=== PATIENT | male | born 1990 ===

== ENCOUNTER 2020-10-15 09:46 | Outpatient (REF) | payer MEDICARE, MEDICAID, SELFPAY ==
--- NOTE | ~2020-10-15 | XR_ITS ---
EXAMINATION: XR HAND, LEFT CLINICAL INFORMATION: Pain COMPARISON: None TECHNIQUE: PA, lateral, and oblique views of the left hand. FINDINGS: The bones and soft tissues are normal. No fracture. Alignment is anatomic. Joint spaces are maintained. No erosions or soft tissue calcifications. XR/XR hand LT min 3V IMPRESSION: Normal left hand.
== END 2020-10-15 09:47 | disposition home or self-care (01) ==
LOC: HO.XRAY 09:46
PROVIDERS: PCP Internal Medicine; Visit Provider Internal Medicine
DX: M79.645 Pain in left finger(s) (principal); M79.89 Other specified soft tissue disorders; S69.90XA Unspecified injury of unspecified wrist, hand and finger(s), initial encounter
CPT/HCPCS: 73130

== ENCOUNTER 2021-04-24 20:20 | Emergency (ER) | payer OTHER, MEDICARE, MEDICAID, SELFPAY ==
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
[2021-04-24 20:24] VITALS: BP 151/84; PULSE 92; RESP 16; TEMP 36.6; O2SAT 98; BMI 24.9
--- NOTE | 2021-04-24 23:44 | PC.NURSE ---
PT WAITING FOR EVAL. SNACKS AND DRINKS PROVIDED. UPDATED PATIENT.
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
[2021-04-25] VITALS: BP 118/81; PULSE 92; RESP 16; TEMP 36.8; O2SAT 99
== END 2021-04-25 00:47 | disposition home or self-care (01) ==
PROVIDERS: Emergency Provider Emergency Medicine
DX: S09.90XA Unspecified injury of head, initial encounter (principal); S20.213A Contusion of bilateral front wall of thorax, initial encounter; R07.9 Chest pain, unspecified; G44.309 Post-traumatic headache, unspecified, not intractable; V43.52XA Car driver injured in collision with other type car in traffic accident, initial encounter; Y93.9 Activity, unspecified; Y92.410 Unspecified street and highway as the place of occurrence of the external cause; Y99.9 Unspecified external cause status; F17.210 Nicotine dependence, cigarettes, uncomplicated; Z79.899 Other long term (current) drug therapy; Z71.6 Tobacco abuse counseling
CPT/HCPCS: 70450; 71045; 99284

== ENCOUNTER 2021-07-16 17:00 | Outpatient (RCR) | payer OTHER, MEDICARE, MEDICAID, SELFPAY ==
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
== END 2021-08-18 12:06 | disposition home or self-care (01) ==
LOC: HO.PT 17:00
PROVIDERS: PCP Internal Medicine; Visit Provider Physician Assistant
DX: R10.32 Left lower quadrant pain (principal); V89.2XXD Person injured in unspecified motor-vehicle accident, traffic, subsequent encounter
CPT/HCPCS: 97110; 97162; 97530

== ENCOUNTER 2022-07-01 08:47 | Outpatient (REF) | payer MEDICARE, MEDICAID, SELFPAY ==
[2022-07-01 09:45] LABS: Anion Gap 11 (12-20); Blood Urea Nitrogen 11 mg/dL (9-16); Calcium 9.9 mg/dL (8.4-10.2); Carbon Dioxide 31 mmol/L (22-29); Chloride 103 mmol/L (96-108); Cholesterol 185 mg/dL; Estimated Glomerular Filt Rate > 60; Glucose Fasting 95 mg/dL (60-99); HDL Cholesterol 54 mg/dL; LDL Cholesterol Calculated 100 mg/dl; Potassium 3.9 mmol/L (3.3-5.1); Sodium 141 mmol/L (135-145); Triglycerides 158 mg/dL
== END 2022-07-01 08:48 | disposition home or self-care (01) ==
LOC: HO.LAB 08:47
PROVIDERS: PCP Internal Medicine; Visit Provider Nurse Practitioner Family
DX: Z13.1 Encounter for screening for diabetes mellitus (principal); Z13.220 Encounter for screening for lipoid disorders
CPT/HCPCS: 36415; 80048; 80061

== ENCOUNTER 2022-12-10 13:12 | Emergency (ER) | payer MEDICARE, MEDICAID, SELFPAY ==
--- NOTE | ~2022-12-10 | CT_ITS ---
EXAMINATION: CT HEAD WITHOUT CONTRAST CT FACIAL BONES WITHOUT CONTRAST CT CERVICAL SPINE WITHOUT CONTRAST CLINICAL INFORMATION: Trauma. COMPARISON: CT head 04/25/2021 TECHNIQUE: Imaging was performed from the skull base to vertex without intravenous administration of contrast. In addition, helical noncontrast CT imaging was acquired through the cervical spine and facial bones and source images were reviewed along with axial reconstructions and sagittal and coronal MPRs. [This CT examination was performed using dose optimization techniques as appropriate, variously including the following: *Automated exposure control *Adjustment of mA and/or kV according to patient size (this includes techniques or standardized protocols for targeted exams where dose is matched to indication/reason for exam; i.e. extremities or head) *Use of iterative reconstruction technique] DLP: 1406 mGy-cm FINDINGS: HEAD: No intracranial mass, hemorrhage, or midline shift is visualized. The ventricles and sulci are normal. No extra-axial collections are identified. FACIAL BONES: There is no evidence of an acute facial bone fracture. The paranasal sinuses are well aerated. The orbits are unremarkable in appearance. CERVICAL SPINE: There is no evidence of acute cervical spine fracture. Vertebral bodies remain normal in height, intervertebral disc spaces are preserved, and alignment is anatomic. No pre- or paravertebral soft tissue abnormality is identified. Limited assessment of the lung apices is unremarkable. CT/CT head/brain wo IV con IMPRESSION: 1. No acute intracranial process or discrete facial bone fracture. 2. No acute cervical spine fracture or traumatic subluxation.
--- NOTE | ~2022-12-10 | CT_ITS ---
EXAMINATION: CT HEAD WITHOUT CONTRAST CT FACIAL BONES WITHOUT CONTRAST CT CERVICAL SPINE WITHOUT CONTRAST CLINICAL INFORMATION: Trauma. COMPARISON: CT head 04/25/2021 TECHNIQUE: Imaging was performed from the skull base to vertex without intravenous administration of contrast. In addition, helical noncontrast CT imaging was acquired through the cervical spine and facial bones and source images were reviewed along with axial reconstructions and sagittal and coronal MPRs. [This CT examination was performed using dose optimization techniques as appropriate, variously including the following: *Automated exposure control *Adjustment of mA and/or kV according to patient size (this includes techniques or standardized protocols for targeted exams where dose is matched to indication/reason for exam; i.e. extremities or head) *Use of iterative reconstruction technique] DLP: 1406 mGy-cm FINDINGS: HEAD: No intracranial mass, hemorrhage, or midline shift is visualized. The ventricles and sulci are normal. No extra-axial collections are identified. FACIAL BONES: There is no evidence of an acute facial bone fracture. The paranasal sinuses are well aerated. The orbits are unremarkable in appearance. CERVICAL SPINE: There is no evidence of acute cervical spine fracture. Vertebral bodies remain normal in height, intervertebral disc spaces are preserved, and alignment is anatomic. No pre- or paravertebral soft tissue abnormality is identified. Limited assessment of the lung apices is unremarkable. CT/CT facial bones wo IV con IMPRESSION: 1. No acute intracranial process or discrete facial bone fracture. 2. No acute cervical spine fracture or traumatic subluxation.
--- NOTE | ~2022-12-10 | XR_ITS ---
EXAMINATION: XR HAND, LEFT CLINICAL INFORMATION: Fall. Pain in the fifth digit. COMPARISON: None available. TECHNIQUE: Three views of the left hand. FINDINGS: The bones and soft tissues are normal. No fracture. Alignment is anatomic. Joint spaces are maintained. No erosions or soft tissue calcifications. XR/XR hand LT min 3V IMPRESSION: Normal left hand.
--- NOTE | ~2022-12-10 | CT_ITS ---
EXAMINATION: CT HEAD WITHOUT CONTRAST CT FACIAL BONES WITHOUT CONTRAST CT CERVICAL SPINE WITHOUT CONTRAST CLINICAL INFORMATION: Trauma. COMPARISON: CT head 04/25/2021 TECHNIQUE: Imaging was performed from the skull base to vertex without intravenous administration of contrast. In addition, helical noncontrast CT imaging was acquired through the cervical spine and facial bones and source images were reviewed along with axial reconstructions and sagittal and coronal MPRs. [This CT examination was performed using dose optimization techniques as appropriate, variously including the following: *Automated exposure control *Adjustment of mA and/or kV according to patient size (this includes techniques or standardized protocols for targeted exams where dose is matched to indication/reason for exam; i.e. extremities or head) *Use of iterative reconstruction technique] DLP: 1406 mGy-cm FINDINGS: HEAD: No intracranial mass, hemorrhage, or midline shift is visualized. The ventricles and sulci are normal. No extra-axial collections are identified. FACIAL BONES: There is no evidence of an acute facial bone fracture. The paranasal sinuses are well aerated. The orbits are unremarkable in appearance. CERVICAL SPINE: There is no evidence of acute cervical spine fracture. Vertebral bodies remain normal in height, intervertebral disc spaces are preserved, and alignment is anatomic. No pre- or paravertebral soft tissue abnormality is identified. Limited assessment of the lung apices is unremarkable. CT/CT cervical spine wo IV con IMPRESSION: 1. No acute intracranial process or discrete facial bone fracture. 2. No acute cervical spine fracture or traumatic subluxation.
--- NOTE | 2022-12-10 14:16 | ED.HEATRA ---
HPI - Head Injury General Chief complaint: Head Injury <MONE Casillas Last Filed: 12/10/22 14:20> Stated complaint: fell Tuesday, hit head. pressure in eye, swollen <MONE Casillas Last Filed: 12/10/22 14:20> Time Seen by Provider: 12/10/22 15:20 <MONE Casillas Last Filed: 12/10/22 14:20> Source: patient and family <MONE Jennings Last Filed: 12/10/22 16:35> Mode of arrival: ambulatory <MONE Jennings Last Filed: 12/10/22 16:35> Limitations: no limitations <MONE Jennings Last Filed: 12/10/22 16:35> History of Present Illness HPI Narrative: 32yo M w/PMHx anxiety, asthma, c/o FREEMAN, facial pain, L pinky finger pain and R upper leg pain s/p mechanical trip fall down about 7 stairs on Tuesday.? Patient reports LOC after incident for a few minutes.? Denies taking anticoagulation.? Reports mild nausea since. reports he did have epistaxis when he fell although that resolved and he has not had that since then. he denies any other symptoms complaints or concerns or injuries at this time. <MONE Jennings Last Filed: 12/10/22 16:35> MD Complaint: head injury and fall <MONE Jennings Last Filed: 12/10/22 16:35> Onset (ago): day(s) (2) <OMNE Jennings Last Filed: 12/10/22 16:35> Mechanism of Injury: fall <MONE Jennings Last Filed: 12/10/22 16:35> Place: home <MONE Jennings Last Filed: 12/10/22 16:35> Loss of Consciousness: yes and minute(s) (less than 5-10 minutes) <MONE Jennings Last Filed: 12/10/22 16:35> Location of injury: frontal <MONE Jennings Last Filed: 12/10/22 16:35> Severity: mild <MONE Jennings Last Filed: 12/10/22 16:35> Quality: aching <MONE Jennings - Last Filed: 12/10/22 16:35> Radiation: none <MONE Jennings - Last Filed: 12/10/22 16:35> Other Injuries: none <MONE Jennings - Last Filed: 12/10/22 16:35> Associated symptoms: nausea <MONE Jennings - Last Filed: 12/10/22 16:35> Related Data Home medications: Home Medications Medication Instructions Recorded Confirmed bupropion HCl 300 mg 24 hr tablet, 300 mg PO QAM 03/17/21 10/06/22 extended release clonidine HCl 0.1 mg tablet 0.1 mg PO BEDTIME 03/17/21 10/06/22 sertraline 50 mg tablet 50 mg PO QAM 03/17/21 10/06/22 clonazepam 1 mg tablet 1 mg PO DAILY PRN 10/06/22 10/06/22 Previous Rx's Medication Instructions Recorded cyclobenzaprine 5 mg tablet 5 mg PO BEDTIME muscle spasm 10 05/06/21 days #10 tabs <MONE Casillas - Last Filed: 12/10/22 14:20> Allergies/Adverse reactions: Allergies Allergy/AdvReac Type Severity Reaction Status Date / Time bupropion [BUPROPION] Allergy Unknown Vomiting, Verified 10/06/22 13:55 diarrhea ciprofloxacin Allergy Unknown fever,rash Verified 10/06/22 13:55 citalopram [From CELEXA] Allergy Unknown UNKNOWN Verified 10/06/22 13:55 desvenlafaxine [From PRISTIQ] Allergy Unknown UNKNOWN Verified 10/06/22 13:55 ibuprofen [From MOTRIN] Allergy Unknown UNKNOWN Verified 10/06/22 13:55 mirtazapine [Remeron] Allergy Unknown ? Verified 10/06/22 13:55 naproxen [NAPROXEN] Allergy Unknown UNKNOWN Verified 10/06/22 13:55 sertraline [SERTRALINE] Allergy Unknown vomiting, Verified 10/06/22 13:55 diarrhea trazodone [TRAZODONE] Allergy Unknown UNKNOWN Verified 10/06/22 13:55 venlafaxine [From EFFEXOR] Allergy Unknown Vomiting, Verified 10/06/22 13:55 diarrhea vortioxetine Allergy Unknown palpation Verified 10/06/22 13:55 [From BRINTELLIX] zolpidem [From AMBIEN] Allergy Unknown UNKNOWN Verified 10/06/22 13:55 quetiapine [QUETIAPINE] AdvReac Unknown palpation Verified 10/06/22 13:55 Pristiq Allergy Unknown vomiting, Uncoded 10/06/22 13:55 upset stomach <MONE Casillas - Last Filed: 12/10/22 14:20> Review of Systems Review of Systems: Constitutional : No Fever, No Chills ENT/Mouth : + Resolved epistaxis, No Ear Pain, No Hoarseness, No sore throat Eyes: No Eye Pain, No Swelling, No Redness, No Foreign Body Cardiovascular : No Chest Pain, No SOB Respiratory : No Cough, No Dyspnea Gastrointestinal : + Nausea, No Vomiting, No Diarrhea, No abdominal Pain Genitourinary : No Dysuria, No Hematuria Musculoskeletal : + right little 5th digit joint pain, No Myalgias, No Joint Swelling Skin : No Skin lacerations, No rash Neuro : No Weakness, No Numbness, No Paresthesias, No Loss of Consciousness, No Dizziness, No Headache Psych : No Anxiety/Panic, No Depression Heme/Lymph: no easy bruising, no Lymphadenopathy Endocrine : No Polyuria, No Polydipsia <OMNE Jennings Last Filed: 12/10/22 16:35> Yes all other systems are reviewed and are negative <MONE Jennings - Last Filed: 12/10/22 16:35> [facility] Past Medical History Attestation statement: The following information was validated with the patient. <MONE Jennings - Last Filed: 12/10/22 16:35> Source: old records reviewed, obtained from family and nursing notes reviewed <MONE Jennings Last Filed: 12/10/22 16:35> Medical History: Medical History Anxiety Asthma Depression Knee pain Left hip pain Low back pain <MONE Casillas Last Filed: 12/10/22 14:20> Surgical History: Surgical History History of wisdom tooth extraction <MONE Casillas - Last Filed: 12/10/22 14:20> Family History Family History: Family History Father Medical history unknown Mental health disorder Mother Medical history unknown Mental health disorder Maternal Grandfather Myocardial infarction Maternal Uncle No problems noted. <MONE Casillas - Last Filed: 12/10/22 14:20> Social History Social History: Social History Housing: Apartment Alcohol intake: current Alcohol intake frequency: holidays/special occasions only Alcohol type: beer Patient Tobacco Use Status: Former Tobacco user Tobacco use type: Cigarette e-Cigarette/Vaping Use: Currently Using Second Hand Smoke Exposure: Yes Advance Directives: No Advance Directives Information Provided: Yes service: No Current occupational status: disabled <MONE Casillas - Last Filed: 12/10/22 14:20> Physical Exam Vital Signs: Vital Signs: Last Vital Signs Temp 98 F 12/10/22 14:17 Pulse 73 12/10/22 14:17 Resp 16 12/10/22 14:17 BP 148/93 H 12/10/22 14:17 Pulse Ox 98 12/10/22 14:17 O2 Del Method Room Air 12/10/22 14:17 BMI result Body Mass Index 24.3 <MONE Casillas - Last Filed: 12/10/22 14:20> Vital Signs: Last Vital Signs Temp 98 F 12/10/22 14:17 Pulse 73 12/10/22 14:17 Resp 16 12/10/22 14:17 BP 148/93 H 12/10/22 14:17 Pulse Ox 98 12/10/22 14:17 O2 Del Method Room Air 12/10/22 14:17 BMI result Body Mass Index 24.3 vital signs have been reviewed as normal and appeared to be correct. Blood pressure 148/93. Heart rate normal. Respiration rate normal. Temperature normal. Oxygen saturation normal. <MONE Jennings - Last Filed: 12/10/22 16:35> Appearance: Alert. Oriented X3. No acute distress. Head: Normal external exam. Normocephalic. patient has superficial abrasion/ecchymosis to the left forehead and nasal bridge area. Otherwise no other signs of trauma. No Knowles signs noted. No raccoon eyes noted Eyes: PERRLA. EOMI. Conjunctiva and sclera normal. Eyelids normal. ENT: EAC normal. TM's Normal. No septal hematoma noted. No hemotympanum noted. Pharynx normal. Uvula midline. Moist mucous membranes. No lesions/ulcerations or masses noted on the tongue. Normal voice. No trismus noted. No drooling noted. No muffled voice noted. Neck: Normal inspection. Neck supple. FROM. No adenopathy. Thyroid Normal. No tracheal deviation noted. No crepitus is noted. No meningeal signs. No neck mass noted. No signs of trauma noted. CVS: Normal heart rate and rhythm. Heart sound normal. Pulses normal throughout. No murmurs/rales/gallops. Respiratory: No respiratory distress. Painless inspiration. Breath sounds normal. No wheezes/rales/rhonchi noted. Chest nontender. No crepitus is noted. No accessory muscle usage noted or decreased air movement noted. No signs of trauma. Abdomen: Soft and nontender. Nondistended. No guarding. No rigidity. Bowel sounds normal in all 4 quadrants. No distention noted. No organomegaly noted. No visible injury noted. No rebound tenderness. Negative Rovsing sign. Negative obturator's sign. Negative psoas sign. Negative Ferguson sign. Back: No CVA tenderness. Full range of motion noted. Nontender. No signs of trauma. Patient neuro intact bilaterally and distally on all 4 extremities. Patient's reflexes intact bilaterally and distally on all 4 extremities. No rashes/lesion/induration/fluctuance or signs of infection noted. Skin: Skin warm and dry. Normal skin color. Normal skin turgor. No rashes/lesions/lacerations noted. Extremities: Patient mild tenderness palpation to the left 5th digit with mild swelling and ecchymosis. No obvious ligamentous or tendon injury noted. Otherwise all other Extremities exhibit normal range of motion and nontender. Neuro: Oriented X 3. No motor deficit. No sensory deficit. Reflexes normal. Normal steady gait. No focal neuro deficits noted. CN's II-XII intact bilaterally? Vascular: + radial pulses/+ 2 distal pedal pulses/+2 dorsalis pedis b/l. Normal cap refill. No cyanosis noted to upper extremity nails and lower extremity toes nails. <MONE Jennings - Last Filed: 12/10/22 16:35> Course Course Course Narrative: RME: 32yo M w/PMHx anxiety, asthma, c/o FREEMAN, facial pain, L pinky finger pain and R upper leg pain s/p mechanical trip fall down about 7 stairs on Tuesday. Patient reports LOC after incident. Denies taking anticoagulation. Reports mild nausea since + healing abrasions noted to nasal bridge and forehead. Left 5th digit with mild swelling and ecchymosis Head/C-spine/facial bone CT and x-ray ordered Full HPI, ROS and PE to be performed by primary ED provider. <MONE Casillas - Last Filed: 12/10/22 14:20> Reevaluation(s) Reevaluation #1: patient presenting for mechanical fall with loss of consciousness 2 days ago with resolved epistaxis with persistent facial pain. Not on any blood thinners. No prolonged down time. No symptoms prior to the fall. Concern for intracranial bleed versus fracture although less likely due to patient has a normal neuro exam although still in differential. Patient most likely concussion/ left finger strain no obvious fractures. CT scan of brain/ cervical spine /facial bones and left hand x-ray negative for any acute processes. Patient most likely muscular skeletal pain. Will instructed follow-up with PCP and to return if any new or worsening symptoms. Patient with spouse at bedside understand agree this plan. <MONE Jennings - Last Filed: 12/10/22 16:35> Time: 16:32 <MONE Jennings - Last Filed: 12/10/22 16:35> Medical Decision Making Independent Interpretation I performed an independent interpretation of an: Plain X-Ray ( left hand x-ray negative for any acute processes agreeable radiologist report) and CT Scan ( CT scan of brain /cervical spine and facial bones reviewed by myself I agree with the radiologist reports no acute findings) <MONE Jennings Last Filed: 12/10/22 16:35> Radiology Impression Discussion of test interpretation with radiology: I have reviewed the radiologist's reading. <MONE Jennings Last Filed: 12/10/22 16:35> Radiologist Impression: FINDINGS: HEAD: No intracranial mass, hemorrhage, or midline shift is visualized. The ventricles and sulci are normal. No extra-axial collections are identified. FACIAL BONES: There is no evidence of an acute facial bone fracture. The paranasal sinuses are well aerated. The orbits are unremarkable in appearance. CERVICAL SPINE: There is no evidence of acute cervical spine fracture. Vertebral bodies remain normal in height, intervertebral disc spaces are preserved, and alignment is anatomic. No pre- or paravertebral soft tissue abnormality is identified. Limited assessment of the lung apices is unremarkable. CT/CT head/brain wo IV con IMPRESSION: 1. No acute intracranial process or discrete facial bone fracture. 2. No acute cervical spine fracture or traumatic subluxation. EXAMINATION: XR HAND, LEFT CLINICAL INFORMATION: Fall. Pain in the fifth digit.? COMPARISON: None available.? TECHNIQUE: Three views of the left hand. FINDINGS: The bones and soft tissues are normal. No fracture. Alignment is anatomic. Joint spaces are maintained. No erosions or soft tissue calcifications.? XR/XR hand LT min 3V IMPRESSION: Normal left hand. ? <MONE Jennings - Last Filed: 12/10/22 16:35> Independent Historian Clinical information obtained from an independent historian. History obtained from or confirmed by: Spouse <MONE Jennings - Last Filed: 12/10/22 16:35> Discharge Plan Discharge Clinical Impression: Fall down stairs, Acute head injury with loss of consciousness, Contusion of nose, Sprain of hand, left <MONE Casillas Last Filed: 12/10/22 14:20> Patient Disposition: Home, Self-Care <MONE Casillas Last Filed: 12/10/22 14:20> Instructions: Head Injury (ED), Contusion in Adults (ED) <MONE Casillas Last Filed: 12/10/22 14:20> Prescriptions: No Action bupropion HCl 300 mg tablet extended release 24 hr 300 mg PO QAM clonidine HCl 0.1 mg tablet 0.1 mg PO BEDTIME sertraline 50 mg tablet 50 mg PO QAM clonazepam 1 mg tablet 1 mg PO DAILY PRN cyclobenzaprine 5 mg tablet 5 mg PO BEDTIME 10 Days Qty: 10 0RF <MONE Casillas - Last Filed: 12/10/22 14:20> Referrals: Pop Umana MD [Primary Care Provider] - 2 days <MONE Casillas - Last Filed: 12/10/22 14:20>
[2022-12-10 14:17] VITALS: BP 148/93; PULSE 73; RESP 16; TEMP 36.6; O2SAT 98; BMI 24.3
== END 2022-12-10 16:37 | disposition home or self-care (01) ==
PROVIDERS: Emergency Provider Emergency Medicine; PCP Internal Medicine
DX: S09.90XA Unspecified injury of head, initial encounter (principal); S00.33XA Contusion of nose, initial encounter; S63.92XA Sprain of unspecified part of left wrist and hand, initial encounter; W10.8XXA Fall (on) (from) other stairs and steps, initial encounter; Y93.9 Activity, unspecified; Y92.018 Other place in single-family (private) house as the place of occurrence of the external cause; Y99.9 Unspecified external cause status
CPT/HCPCS: 70450; 70486; 72125; 73130; 99282; 99284

== ENCOUNTER → 2024-09-07 13:01 | Outpatient (BNVA) | payer MEDICARE, MEDICAID, SELFPAY | PROVIDERS: PCP Internal Medicine; Visit Provider Internal Medicine | DX: Z00.00 Encounter for general adult medical examination without abnormal findings (principal); J45.20 Mild intermittent asthma, uncomplicated; R10.13 Epigastric pain; F41.9 Anxiety disorder, unspecified; F33.9 Major depressive disorder, recurrent, unspecified; Z87.898 Personal history of other specified conditions | CPT/HCPCS: 96127; 99395 ==

== ENCOUNTER 2024-09-08 07:21 | Outpatient (REF) | payer MEDICARE, MEDICAID, SELFPAY ==
--- OUTSIDE RECORDS SUMMARY | 2024-09-08 07:24 | XMS_ITS | Encounter Summary ---
Author Organization [facility] Address [address] [place] [phone] Phone Care Team Providers Care Stone Lathe Operator Name Role Phone Estrellita Strickland MD Primary Care Provider Unavailabl e Encounter Details Date Type Department Care Team (Late st Contact Info) Description 12/17/2009 Documentation [facility] [address] [place] [address] Family Medicine, Physician [address] [place] [address] Social History Tobacco Use Types Packs/Day Years Used Date Smoking Tobacco: Never Assessed Sex and Gender Information Value Date Recorded Sex Assigned at Not on file Legal Sex Male 4:37 PM EDT Gender Identity Not on file Sexual Orientation Not on file documented as of this encounter Plan of Treatment Not on file documented as of this encounter Visit Diagnoses Not on filedocumented in this encounter Care Teams Stone Lathe Operator Relationship Specialty Start Date End Date Estrellita Strickland MD PCP - General 03/11/17 documented as of this encounter
--- OUTSIDE RECORDS SUMMARY | 2024-09-08 07:24 | XMS_ITS | Encounter Summary ---
Author Organization [facility] Address [address] [place] [phone] Phone Care Team Providers Care Picker Machine Operator Name Role Phone Estrellita Strickland MD Primary Care Provider Unavailabl e Encounter Details Date Type Department Care Team (Late st Contact Info) Description 07/14/2011 Documentation [facility] [address] [place] [address] Family Medicine, Physician [address] [place] [address] Social History Tobacco Use Types Packs/Day Years [...] on filedocumented in this encounter Care Teams Picker Machine Operator Relationship Specialty Start Date End Date Estrellita Strickland MD PCP - General 03/11/17 documented as of this encounter
--- OUTSIDE RECORDS SUMMARY | 2024-09-08 07:24 | XMS_ITS | Clinical Summary ---
Author Organization [facility] Address [address] [place] [phone] Phone Care Team Providers Care Performance Architect Name Role Phone Estrellita Strickland MD Primary Care Provider Unavailabl e Immunizations Immunization Administration Dates Next Due DTP 12/07/1995, 3,06/30/1992,04/04,01/28/1992 Hep B, ped/adol 12/28/1995,10/07/1995,09/08/1995 Hib (PRP-T) 04/08/1993, 2,04/04/1992,01/27 IPV 12/07/1995, 3,04/04/1992,01/27 Influenza, injectable, trivalent 008,05/24/2007,05/20/2004,05/27,05/17/2002 MMR 10/15/1993,12/03/1992 Meningococcal Conj (Menactra) MCV4P 06/09/2007 Td (adult) (MBL), 2 Lf tetan us toxoid, PF, adsorbed 10/07/2003 Tdap 09/24/2008 Family History Relation Name Status Comments Father Alive Father: Carpal tunnel, Depression, Reflux, Tendonitis Mother Alive Mother: Arthrit is, Reflux, Depression, Anxiety, Panic attacks, Hypothyroidism Other Family history of Diabetes mellitus, Family history of Autism, Family history of Migraines, Family history of Elevated cholesterol, Family history of Asthma Sister Alive Sister: Migrain es, reflux/gastro. Social History Tobacco Use Types Packs/Day Years Used Date Smoking Tobacco: Never Assessed Sex and Gender Information Value Date Recorded Sex Assigned at Not on file Legal Sex Male 4:37 PM EDT Gender Identity Not on file Sexual Orientation Not on file Last Filed Vital Signs Vital Sign Reading Time Taken Comments Blood Pressure 118/78 02/24/2010 12:00 AM EDT Pulse 72 02/24/2010 12:00 AM EDT Temperature 36.3 ??C (97.3 ??F) 02/24/2010 12:00 AM E DT Respiratory Rate - - Oxygen Saturation - - Inhaled Oxygen Concentration - - Weight 62.6 kg (138 lb) 02/24/2010 12:00 AM EDT Height 172.7 cm (5' 8 ) 02/24/2010 12:00 AM EDT Body Mass Index 20.98 02/24/2010 12:00 AM EDT Plan of Treatment Health Maintenance Due Date Last Done Comments Hepatitis B Vaccines (4 of 4 - 4-dose series) 12/29/1995 12/28/1995, 10/07/1995, 09/08/1995 Varicella Vaccines (1 of 2 - 13+ 2-dose series) 11/26/2004 DTaP,Tdap,and Td Vaccines (7 - Td or Tdap) 09/24/2018 09/24/2008, 10/07/2003, 12/07/1995, Additional history exists Influenza Vaccines (#1) 2024 05/01/20, 05/24/2007, 05/20/2004, Additional history exists COVID-19 Vaccine ( season) 2024 HIB Vaccines Completed 04/08/1993, 06/03, 04/04/1992, Additional history exists MMR Vaccines Completed 10/15/1993, 12/03/1992 IPV Vaccines Completed 12/07/1995, 03/1993, 04/04/1992, Additional history exists Meningococcal Vaccine Aged Out 06/09/2007 No jose tatiana eligible based on patient's age to complete this topic HPV Vaccines Aged Out No longer eligi ble based on patient's age to complete this topic Hepatitis A Vaccines Aged Out No long er eligible based on patient's age to complete this topic Men B Vaccine Aged Out No longer elig ible based on patient's age to complete this topic Pneumococcal Vaccine Aged Out No long er eligible based on patient's age to complete this topic Care Teams Performance Architect Relationship Specialty Start Date End Date Estrellita Strickland MD PCP - General 03/11/17
--- OUTSIDE RECORDS SUMMARY | 2024-09-08 07:24 | XMS_ITS | Encounter Summary ---
Author Organization [facility] Address [address] [place] [address] Phone Care Team Providers Care Electrician Station Assistant Name Role Phone Estrellita Strickland MD Primary Care Provider Unavailabl e Encounter Details Date Type Department Care Team (Late st Contact Info) Description 06/14/2011 Documentation [facility] [address] [place] [address] Family Medicine, Physician [address] [place] [address] Social History Tobacco Use Types Packs/Day Years [...] on filedocumented in this encounter Care Teams Electrician Station Assistant Relationship Specialty Start Date End Date Estrellita Strickland MD PCP - General 03/11/17 documented as of this encounter
--- OUTSIDE RECORDS SUMMARY | 2024-09-08 07:25 | XMS_ITS | Clinical Summary ---
Author Organization [facility] ity Address [address] [place] [address] Care Team Providers Care Glass Melt Operator Name Role Phone Unavailable Primary Care Provider Unavailabl e Social History Tobacco Use Types Packs/Day Years Used Date Smoking Tobacco: Never Assessed Sex and Gender Information Value Date Recorded Sex Assigned at Not on file Gender Identity Not on file Sexual Orientation Not on file Plan of Treatment Health Maintenance Due Date Last Done Comments DTaP,Tdap,and Td Vaccines (1 - Tdap) 11/26/2010 Hepatitis B Vaccines (1 of 3 - 19+ 3-dose series) 11/26/2010 COVID-19 Vaccine (2023-2 5 season) 2024 Influenza Vaccine (#1) 2024 HIB Vaccines Aged Out No longer eligi ble based on patient's age to complete this topic HPV Vaccines Aged Out No longer eligi ble based on patient's age to complete this topic Hepatitis A Vaccines Aged Out No long er eligible based on patient's age to complete this topic IPV Vaccines Aged Out No longer eligi ble based on patient's age to complete this topic MMR Vaccines Aged Out No longer eligi ble based on patient's age to complete this topic Meningococcal ACWY Vaccine Aged Out N o longer eligible based on patient's age to complete this topic Pneumococcal Vaccine: Pediat rics (0 to 5 Years) and At-Risk Patients (6 to 64 Years) Aged Out No longer eligible b ased on patient's age to complete this topic RSV Immunization Patients Un neftali 20 months Aged Out No longer eligible b ased on patient's age to complete this topic Varicella Vaccines Aged Out No longer eligible based on patient's age to complete this topic
--- OUTSIDE RECORDS SUMMARY | 2024-09-08 07:25 | XMS_ITS | Encounter Summary ---
Author Organization [facility] Address [address] [place] [address] Phone Care Team Providers Care Creasing Machine Operator Name Role Phone Estrellita Strickland MD Primary Care Provider Unavailabl e Encounter Details Date Type Department Care Team (Late st Contact Info) Description 06/02/2017 Conversion Encounter [facility] - [address] [address] Social History Tobacco Use Types Packs/Day Years [...] on filedocumented in this encounter Care Teams Creasing Machine Operator Relationship Specialty Start Date End Date Estrellita Strickland MD PCP - General 03/11/17 documented as of this encounter
--- OUTSIDE RECORDS SUMMARY | 2024-09-08 07:25 | XMS_ITS | Encounter Summary ---
Author Organization [facility] Address [address] [place] [phone] Phone Care Team Providers Care Road Repairer Name Role Phone Estrellita Strickland MD Primary Care Provider Unavailabl e Encounter Details Date Type Department Care Team (Late st Contact Info) Description 12/17/2009 Documentation [facility] [address] [place] [address] Family Medicine, Physician [address] [place] [address] Social History Tobacco Use Types Packs/Day Years [...] on filedocumented in this encounter Care Teams Road Repairer Relationship Specialty Start Date End Date Estrellita Strickland MD PCP - General 03/11/17 documented as of this encounter
[2024-09-08 08:27] LABS: Basophils Absolute Auto 0.1 X10*3/uL (0.0-0.2); Basophils Percent Auto 0.8 % (0-2); Eosinophils Absolute Auto 0.2 X10*3/uL (0.0-0.4); Eosinophils Percent Auto 2.5 % (0-4); Hematocrit 42.8 % (42.0-52.0); Hemoglobin 14.2 g/dl (14.0-18.0); Imm Gran Abs Auto 0.03 X10*3/uL (0.00-0.03); Imm Gran Pct Auto 0.3 % (0.0-0.4); Lymphocytes Absolute Auto 2.1 X10*3/uL (1.2-4.9); Lymphocytes Percent Auto 23.7 % (20-40); MANUAL DIFF FLAG NO; Mean Corpuscular HGB Conc 33.2 g/dl (31.0-36.0); Mean Corpuscular Hemoglobin 28.3 pg (27.0-33.0); Mean Corpuscular Volume 85.3 fL (80.0-98.0); Mean Platelet Volume 9.5 fL (9.4-12.4); Monocytes Absolute Auto 0.6 X10*3/uL (0.1-1.2); Monocytes Percent Auto 6.2 % (2-11); Neutrophils Absolute Auto 5.9 x10*3/uL (2.0-8.3); Neutrophils Percent Auto 66.5 % (45-73); Platelet Count 335 X10*3/uL (160-400); Red Blood Count 5.02 X10*6/uL (4.60-5.80); Red Cell Distribution Width 13.2 % (11.0-16.0); White Blood Count 8.9 X10*3/uL (4.8-10.8)
[2024-09-08 08:39] LABS: Appearance Urine Clear; Color Urine Yellow; Glucose Urine UA Negative (Negative); Leukocyte Esterase Urine Negative (Negative); Nitrite Urine Negative (Negative); PH 5.5 (5.0-9.0); Specific Gravity - Urine >= 1.030 (1.005-1.025); Urine Blood Negative (Negative); Urine Ketones Trace mg/dL (Negative); Urine Protein Negative (Neg-Trace)
[2024-09-08 09:03] LABS: Erythrocyte Sedimentation Rate 8 MM/HR (0-15)
[2024-09-08 09:18] LABS: Alanine Aminotransferase 19 U/L (0-40); Albumin Level 4.6 g/dL (3.5-5.0); Alkaline Phosphatase 68 U/L (39-117); Anion Gap 14 (12-20); Aspartate Amino Transferase 18 U/L (5-37); Bilirubin Total 0.3 mg/dL (0.0-1.0); Blood Urea Nitrogen 12 mg/dL (9-16); C Reactive Protein < 0.10 mg/dL (< or = 0.50); Calcium 9.6 mg/dL (8.4-10.2); Carbon Dioxide 28 mmol/L (22-29); Chloride 106 mmol/L (96-108); Cholesterol 111 mg/dL (<200); Estimated Glomerular Filt Rate > 60; Glucose Fasting 102 mg/dL (60-99); HDL Cholesterol 46 mg/dL (>40); LDL Cholesterol Calculated 58 mg/dL (<100); Potassium 3.8 mmol/L (3.3-5.1); Sodium 144 mmol/L (135-145); Total Protein 7.5 g/dL (6.5-8.0); Triglycerides 39 mg/dL (<150)
[2024-09-08 09:33] LABS: TSH reflex Free T4 1.45 uIU/mL (0.32-4.0); Vitamin D 25-OH Total 66.3 ng/mL (>30)
== END 2024-09-08 07:22 | disposition home or self-care (01) ==
LOC: HO.LAB 07:21
PROVIDERS: PCP Internal Medicine; Visit Provider Internal Medicine
DX: E78.00 Pure hypercholesterolemia, unspecified (principal); M54.50 Low back pain, unspecified; R30.0 Dysuria; E55.9 Vitamin D deficiency, unspecified; M79.7 Fibromyalgia; D64.9 Anemia, unspecified
CPT/HCPCS: 36415; 80053; 80061; 81003; 82306; 84443; 85025; 85652; 86140

== ENCOUNTER 2024-09-21 10:55 | Outpatient (REF) | payer MEDICARE, MEDICAID, SELFPAY ==
--- OUTSIDE RECORDS SUMMARY | 2024-09-21 12:22 | XMS_ITS | Encounter Summary ---
Author Organization [facility] Address [address] [place] [address] Phone Care Team Providers Care Fixture Relamper Name Role Phone Estrellita Strickland MD Primary Care Provider Unavailabl e Encounter Details Date Type Department Care Team (Late st Contact Info) Description 12/17/2009 Documentation [facility] [address] [place] [address] Family Medicine, Physician [address] [place] [address] Social History Tobacco Use Types Packs/Day Years [...] on filedocumented in this encounter Care Teams Fixture Relamper Relationship Specialty Start Date End Date Estrellita Strickland MD PCP - General 03/11/17 documented as of this encounter
--- OUTSIDE RECORDS SUMMARY | 2024-09-21 12:22 | XMS_ITS | Encounter Summary ---
Author Organization [facility] Address [address] [place] [address] Phone Care Team Providers Care Sharepoint Application Developer Name Role Phone Estrellita Strickland MD Primary Care Provider Unavailabl e Encounter Details Date Type Department Care Team (Late st Contact Info) Description 12/17/2009 Documentation [facility] [address] [place] [address] Family Medicine, Physician [address] [place] [address] Social History Tobacco Use Types Packs/Day Years [...] on filedocumented in this encounter Care Teams Sharepoint Application Developer Relationship Specialty Start Date End Date Estrellita Strickland MD PCP - General 03/11/17 documented as of this encounter
--- OUTSIDE RECORDS SUMMARY | 2024-09-21 12:22 | XMS_ITS | Encounter Summary ---
Author Organization [facility] Address [address] [place] [address] Phone Care Team Providers Care Security Analyst Name Role Phone Estrellita Strickland MD Primary Care Provider Unavailabl e Encounter Details Date Type Department Care Team (Late st Contact Info) Description 07/14/2011 Documentation [facility] [address] [place] [address] Family Medicine, Physician [address] [place] [address] Social History Tobacco Use Types Packs/Day Years [...] on filedocumented in this encounter Care Teams Security Analyst Relationship Specialty Start Date End Date Estrellita Strickland MD PCP - General 03/11/17 documented as of this encounter
--- OUTSIDE RECORDS SUMMARY | 2024-09-21 12:22 | XMS_ITS | Encounter Summary ---
Author Organization [facility] Address [address] [place] [address] Phone Care Team Providers Care Boxing Promoter Name Role Phone Estrellita Strickland MD Primary Care Provider Unavailabl e Encounter Details Date Type Department Care Team (Late st Contact Info) Description 06/14/2011 Documentation [facility] [address] [place] [address] Family Medicine, Physician [address] [place] [address] Social History Tobacco Use Types Packs/Day Years [...] on filedocumented in this encounter Care Teams Boxing Promoter Relationship Specialty Start Date End Date Estrellita Strickland MD PCP - General 03/11/17 documented as of this encounter
--- OUTSIDE RECORDS SUMMARY | 2024-09-21 12:22 | XMS_ITS | Clinical Summary ---
Author Organization [facility] Address [address] [place] [address] Phone Care Team Providers Care Pipeman Name Role Phone Estrellita Strickland MD Primary [...] age to complete this topic Care Teams Pipeman Relationship Specialty Start Date End Date Estrellita Strickland MD PCP - General 03/11/17
--- OUTSIDE RECORDS SUMMARY | 2024-09-21 12:22 | XMS_ITS | Encounter Summary ---
Author Organization [facility] Address [address] [place] [address] Phone Care Team Providers Care Demographer Name Role Phone Estrellita Strickland MD Primary Care Provider Unavailabl e Encounter Details Date Type Department Care Team (Late st Contact Info) Description 06/02/2017 Conversion Encounter [facility] - [address] [address] Social History Tobacco Use Types Packs/Day Years [...] on filedocumented in this encounter Care Teams Demographer Relationship Specialty Start Date End Date Estrellita Strickland MD PCP - General 03/11/17 documented as of this encounter
--- OUTSIDE RECORDS SUMMARY | 2024-09-21 12:22 | XMS_ITS | Clinical Summary ---
Author Organization [employer] [facility] ity Address [address] [place] [address] Care Team Providers Care Telemetry Tech Name Role Phone Unavailable Primary Care Provider [...]
[2024-09-21 14:28] LABS: Influenza A PCR POSITIVE (Negative); Influenza B PCR NEGATIVE (Negative); Resp Syncy Virus RNA Qual PCR NEGATIVE (Negative); SARS COV2 PCR INHOUSE NEGATIVE (Negative)
== END 2024-09-21 10:56 | disposition home or self-care (01) ==
LOC: HO.LAB 10:55
PROVIDERS: PCP Internal Medicine; Visit Provider Physician Assistant
DX: J98.8 Other specified respiratory disorders (principal); R09.89 Other specified symptoms and signs involving the circulatory and respiratory systems; B97.89 Other viral agents as the cause of diseases classified elsewhere; R50.9 Fever, unspecified
CPT/HCPCS: 0241U; 99212

== ENCOUNTER 2024-09-21 10:55 | Outpatient (AMB) | payer MEDICARE, MEDICAID, SELFPAY ==
--- NOTE | 2024-09-21 11:04 | AM.OFFWIN_ITS ---
Intake Vital Signs 09/21/24 11:05 Height 5 ft 8 in Weight 117 lb BMI 17.8 BP 110/70 Blood Pressure Location Lt brachial Position Sitting Pulse 97 Pulse Source Pulse Oximeter Temp 98.4 F Temp Source Oral Pulse Oximetry (%) 98 Oxygen Delivery Method Room Air Intake Visit Reasons: EP-chest congestion, cough, chills, headaches Intake Note: Patient here for chest congestion, fevers, chills, headaches, cough that has been present for about 1 week. Patient Tobacco Use Status: Former Tobacco user Allergies bupropion [BUPROPION] Allergy (Unknown, Verified 09/21/24 11:07) Vomiting, diarrhea ciprofloxacin Allergy (Unknown, Verified 09/21/24 11:07) fever,rash citalopram [From CELEXA] Allergy (Unknown, Verified 09/21/24 11:07) UNKNOWN desvenlafaxine [From PRISTIQ] Allergy (Unknown, Verified 09/21/24 11:07) UNKNOWN ibuprofen [From MOTRIN] Allergy (Unknown, Verified 09/21/24 11:07) UNKNOWN mirtazapine [Remeron] Allergy (Unknown, Verified 09/21/24 11:07) ? naproxen [NAPROXEN] Allergy (Unknown, Verified 09/21/24 11:07) UNKNOWN sertraline [SERTRALINE] Allergy (Unknown, Verified 09/21/24 11:07) vomiting, diarrhea trazodone [TRAZODONE] Allergy (Unknown, Verified 09/21/24 11:07) UNKNOWN venlafaxine [From EFFEXOR] Allergy (Unknown, Verified 09/21/24 11:07) Vomiting, diarrhea vortioxetine [From BRINTELLIX] Allergy (Unknown, Verified 09/21/24 11:07) palpation zolpidem [From AMBIEN] Allergy (Unknown, Verified 09/21/24 11:07) UNKNOWN quetiapine [QUETIAPINE] Adverse Reaction (Unknown, Verified 09/21/24 11:07) palpation Pristiq Allergy (Unknown, Uncoded 09/21/24 11:07) vomiting, upset stomach Do you need a note to return to daycare/school/sports/work: No HPI HPI Comments History of Present Illness Details History - The patient is a 33-year-old male pres enting with symptoms suggestive of a viral upper respiratory infection, including recent onset of mucus production, fever, chills, and a persistent nocturnal cough. - He has a childhood history of asthma, though has not required recent management for this condition and does not have an inhaler. - Symptoms include ear pressure and head aches, which are gradually improving. Fever and cough have been partly managed with yjqn-jrt-hxvsemf medications, notably Tylenol, to reduce fever. - Notably, the patient experiences incre ased shortness of breath, impacting his ability to engage in physical activity. - The patient has not sought previous me dical intervention and has relied on hydration and avoidance of antibiotics, seeking care currently to confirm the diagnosis and prevent further transmission. - Son and girlfriend with recent Flu A d iagnosis. Physical Exam General: Cooperative, healthy appearing, comfortable and no acute distress Orientation/consciousness: Patient oriented x3 Limitations: No limitations Head: Normal to inspection Ears: Hearing grossly normal bilaterally, external ears normal and TM's normal bilaterally Nose: Normal external nose present, Normal nares present and No nasal discharge present Face and sinus: Normal facial exam and Yes sinuses nontender Mouth: Normal oral and palatal mucosa present and moist mucous membranes Throat: Yes tonsils normal, Yes uvula midline. Posterior oropharynx erythema Eyes: Appearance normal, both eyes and all related structures Neck: Normal visual inspection Respiratory: Clear to auscultation bilaterally. Normal respiratory effort, able to speak in complete sentences, Actively coughing, no respiratory distress, not tachypneic, no tripod positioning and no use of accessory muscles Cardiovascular: Regular rate and rhythm. Normal S1 and S2 Skin: No rashes or lesions noted Neuro: Patient oriented x3 Extremities: Normal to inspection and Yes no clubbing, cyanosis or edema [facility] Medical History (Updated 09/21/24 @ 11:21 by Renetta Holder PA-C) History of alcohol use disorder Asthma Depression Anxiety Knee pain Left hip pain Low back pain Surgical History History of wisdom tooth extraction Family History Father Medical history unknown Mental health disorder Mother Medical history unknown Mental health disorder Maternal Grandfather Myocardial infarction Maternal Uncle No problems noted. Social History (Updated 09/07/24 @ 13:46 by Pop Umana MD) Housing: Apartment Alcohol intake: former Comment: states that he is 2 years sober now as of 09/07/2024 Patient Tobacco Use Status: Former Tobacco user Tobacco use type: Cigarette e-Cigarette/Vaping Use: Currently Using Second Hand Smoke Exposure: Yes service: No Current occupational status: disabled Cognitive needs: No Hearing needs: No Vision needs: No Review of Systems Const All systems reviewed & are unremarkable except as noted in HPI and below Physical Exam Vital Signs: Last Vital Signs Temp 98.4 F 09/21/24 11:05 Pulse 97 09/21/24 11:05 BP 110/70 09/21/24 11:05 Pulse Ox 98 09/21/24 11:05 Oxygen Delivery Method Room Air 09/21/24 11:05 BMI result Body Mass Index 17.8 Assessment & Plan Assessment & Plan (1) Viral respiratory infection: Code(s): J98.8 - Other specified respiratory disorders; B97.89 - Other viral agents as the cause of diseases classified elsewhere Plan: VSS, pt well appearing and PE unremarkable. An inhaler was prescribed to manage any new potential respiratory distress triggered by the upper respiratory infection. Education on inhaler use was provided, with an advisory to monitor for any worsening symptoms. The patient's symptoms suggest a viral upper respiratory infection. Management focuses on symptomatic relief with antipyretics like Tylenol for fever and cough suppressant prescriptions for nighttime cough. Alnj-rdq-uzjpsnx decongestants like Inna D are suggested. Continued isolation from work to prevent the spread is recommended. Patient was informed and verbally consented to the use of an ambient scribe for clinic note documentation during this visit Orders: Orders SARS-CoV2/FLU/RSV Today R09.89 - Other specified symptoms and signs involving the circulatory and respiratory systems Medications: New benzonatate 200 mg PO .qhs PRN 14 caps 0RF cough albuterol sulfate 90 mcg/actuation 2 puffs inhalation Q6H PRN 8.5 grams 0RF shortness of breath or wheezing or cough Coding Level of Care Code Est Pt Level 3 (33011) Diagnoses Viral respiratory infection J98.8; B97.89
[2024-09-21 11:05] VITALS: BP 110/70; PULSE 97; TEMP 36.9; O2SAT 98; BMI 17.8
--- OUTSIDE RECORDS SUMMARY | 2024-09-21 11:59 | XMS_ITS | Encounter Summary ---
Author Organization [facility] Address [address] [place] [address] Phone Care Team Providers Care Pattern Changer And Repairer Name Role Phone Estrellita Strickland MD Primary Care Provider Unavailabl e Encounter Details Date Type Department Care Team (Late st Contact Info) Description 12/17/2009 Documentation [facility] [address] [place] [address] Family Medicine, Physician [address] [place] [address] Social History Tobacco Use Types Packs/Day Years [...] on filedocumented in this encounter Care Teams Pattern Changer And Repairer Relationship Specialty Start Date End Date Estrellita Strickland MD PCP - General 03/11/17 documented as of this encounter
--- OUTSIDE RECORDS SUMMARY | 2024-09-21 11:59 | XMS_ITS | Encounter Summary ---
Author Organization [facility] Address [address] [place] [address] Phone Care Team Providers Care Food Mixer Name Role Phone Estrellita Strickland MD Primary Care Provider Unavailabl e Encounter Details Date Type Department Care Team (Late st Contact Info) Description 12/17/2009 Documentation [facility] [address] [place] [address] Family Medicine, Physician [address] [place] [address] Social History Tobacco Use Types Packs/Day Years [...] on filedocumented in this encounter Care Teams Food Mixer Relationship Specialty Start Date End Date Estrellita Strickland MD PCP - General 03/11/17 documented as of this encounter
--- OUTSIDE RECORDS SUMMARY | 2024-09-21 11:59 | XMS_ITS | Clinical Summary ---
Author Organization [facility] ity Address [address] [place] [address] Care Team Providers Care Strategy Consultant Name Role Phone Unavailable Primary Care Provider Unavailabl e Social History Tobacco Use Types Packs/Day Years Used Date Smoking Tobacco: Never Assessed Sex and Gender Information Value Date Recorded Sex Assigned at Not on file Legal Sex Male 4:35 AM EST Gender Identity Not on file Sexual Orientation [...] patient's age to complete this topic Meningococcal B Vacine Aged Out No lo nger eligible based on patient's age to complete [...]
--- OUTSIDE RECORDS SUMMARY | 2024-09-21 11:59 | XMS_ITS | Encounter Summary ---
Author Organization [facility] Address [address] [place] [address] Phone Care Team Providers Care Ethnic Origins Teacher Name Role Phone Estrellita Strickland MD Primary Care Provider Unavailabl e Encounter Details Date Type Department Care Team (Late st Contact Info) Description 06/02/2017 Conversion Encounter [facility] - [address] [address] Social History Tobacco Use Types Packs/Day Years [...] on filedocumented in this encounter Care Teams Ethnic Origins Teacher Relationship Specialty Start Date End Date Estrellita Strickland MD PCP - General 03/11/17 documented as of this encounter
--- OUTSIDE RECORDS SUMMARY | 2024-09-21 11:59 | XMS_ITS | Encounter Summary ---
Author Organization [facility] Address [address] [place] [address] Phone Care Team Providers Care Crucible Packer Name Role Phone Estrellita Strickland MD Primary Care Provider Unavailabl e Encounter Details Date Type Department Care Team (Late st Contact Info) Description 06/14/2011 Documentation [facility] [address] [place] [address] Family Medicine, Physician [address] [place] [address] Social History Tobacco Use Types Packs/Day Years [...] on filedocumented in this encounter Care Teams Crucible Packer Relationship Specialty Start Date End Date Estrellita Strickland MD PCP - General 03/11/17 documented as of this encounter
--- OUTSIDE RECORDS SUMMARY | 2024-09-21 11:59 | XMS_ITS | Encounter Summary ---
Author Organization [facility] Address [address] [place] [address] Phone Care Team Providers Care Barrel Header Name Role Phone Estrellita Strickland MD Primary Care Provider Unavailabl e Encounter Details Date Type Department Care Team (Late st Contact Info) Description 07/14/2011 Documentation [facility] [address] [place] [address] Family Medicine, Physician [address] [place] [address] Social History Tobacco Use Types Packs/Day Years [...] on filedocumented in this encounter Care Teams Barrel Header Relationship Specialty Start Date End Date Estrellita Strickland MD PCP - General 03/11/17 documented as of this encounter
--- OUTSIDE RECORDS SUMMARY | 2024-09-21 11:59 | XMS_ITS | Clinical Summary ---
Author Organization [facility] Address [address] [place] [address] Phone Care Team Providers Care Tap Dancer Name Role Phone Estrellita Strickland MD Primary [...] age to complete this topic Care Teams Tap Dancer Relationship Specialty Start Date End Date Estrellita Strickland MD PCP - General 03/11/17
== END 2024-09-21 12:14 | disposition home or self-care (01) ==
PROVIDERS: PCP Internal Medicine; Visit Provider Physician Assistant
DX: J98.8 Other specified respiratory disorders (principal); B97.89 Other viral agents as the cause of diseases classified elsewhere

== ENCOUNTER 2024-09-24 09:28 | Outpatient (AMB) | payer MEDICARE, MEDICAID, SELFPAY ==
[2024-09-24 10:10] VITALS: BP 120/80; PULSE 106; TEMP 36.8; O2SAT 97; BMI 16.7
--- NOTE | 2024-09-24 10:10 | MHC.OFFWIV ---
Intake Vital Signs 09/24/24 10:10 Height 5 ft 8 in Weight 110 lb BMI 16.7 BP 120/80 Blood Pressure Location Lt brachial Position Sitting Pulse 106 H Pulse Source Pulse Oximeter Temp 98.3 F Temp Source Oral Pulse Oximetry (%) 97 Oxygen Delivery Method Room Air Intake Visit Reasons: EP Flu+ tuesday, lung pain worse Patient Tobacco Use Status: Former Tobacco user Allergies bupropion [BUPROPION] Allergy (Unknown, Verified 09/24/24 10:11) Vomiting, diarrhea ciprofloxacin Allergy (Unknown, Verified 09/24/24 10:11) fever,rash citalopram [From CELEXA] Allergy (Unknown, Verified 09/24/24 10:11) UNKNOWN desvenlafaxine [From PRISTIQ] Allergy (Unknown, Verified 09/24/24 10:11) UNKNOWN ibuprofen [From MOTRIN] Allergy (Unknown, Verified 09/24/24 10:11) UNKNOWN mirtazapine [Remeron] Allergy (Unknown, Verified 09/24/24 10:11) ? naproxen [NAPROXEN] Allergy (Unknown, Verified 09/24/24 10:11) UNKNOWN sertraline [SERTRALINE] Allergy (Unknown, Verified 09/24/24 10:11) vomiting, diarrhea trazodone [TRAZODONE] Allergy (Unknown, Verified 09/24/24 10:11) UNKNOWN venlafaxine [From EFFEXOR] Allergy (Unknown, Verified 09/24/24 10:11) Vomiting, diarrhea vortioxetine [From BRINTELLIX] Allergy (Unknown, Verified 09/24/24 10:11) palpation zolpidem [From AMBIEN] Allergy (Unknown, Verified 09/24/24 10:11) UNKNOWN quetiapine [QUETIAPINE] Adverse Reaction (Unknown, Verified 09/24/24 10:11) palpation Pristiq Allergy (Unknown, Uncoded 09/21/24 11:07) vomiting, upset stomach Do you need a note to return to daycare/school/sports/work: No HPI HPI Comments History of Present Illness Details 33 y/o male patient who presents to the walk in clinic with c/o SOB, cough, body aches, fatigue and Fevers. Pt tested positive for Influenza A last Tuesday. Pt worried that he might have Pneumonia asking for Chest Xray. [facility] Medical History (Updated 09/24/24 @ 10:30 by Stacie Cheek NP) Influenza A History of alcohol use disorder Asthma Depression Anxiety Knee pain Left hip pain Low back pain Surgical History History of wisdom tooth extraction Family History Father Medical history unknown Mental health disorder Mother Medical history unknown Mental health disorder Maternal Grandfather Myocardial infarction Maternal Uncle No problems noted. Social History (Updated 09/07/24 @ 13:46 by Pop Umana MD) Housing: Apartment Alcohol intake: former Comment: states that he is 2 years sober now as of 09/07/2024 Patient Tobacco Use Status: Former Tobacco user Tobacco use type: Cigarette e-Cigarette/Vaping Use: Currently Using Second Hand Smoke Exposure: Yes service: No Current occupational status: disabled Cognitive needs: No Hearing needs: No Vision needs: No Review of Systems Const All systems reviewed & are unremarkable except as noted in HPI and below Physical Exam Vital Signs: Last Vital Signs Temp 98.3 F 09/24/24 10:10 Pulse 106 H 09/24/24 10:10 BP 120/80 09/24/24 10:10 Pulse Ox 97 09/24/24 10:10 Oxygen Delivery Method Room Air 09/24/24 10:10 BMI result Body Mass Index 16.7 Const General: cooperative and no acute distress Nutritional Appearance: underweight Orientation/consciousness: patient oriented x3 Resp Effort & Inspection: normal respiratory effort, able to speak in complete sentences and Actively coughing Auscultation: clear to auscultation bilaterally, no crackles, no rales, no rhonchi and no wheezes Cardio Heart sounds: S1 normal heart sound present and S2 normal heart sound present Neuro General: patient oriented x3 Assessment & Plan Assessment & Plan (1) Influenza A: Code(s): J10.1 - Influenza due to other identified influenza virus with other respiratory manifestations Plan: Ordered Chest Xray. Continue with Acetaminophen for pain and fever relief. Orders: Orders XR chest 2V Today J10.1 - Influenza due to other identified influenza virus with other respiratory manifestations Coding Level of Care Code Est Pt Level 4 (62345) Diagnoses Influenza A J10.1 Time Spent (min) 20
--- OUTSIDE RECORDS SUMMARY | 2024-09-24 10:16 | XMS_ITS | Encounter Summary ---
Author Organization [facility] Address [address] [place] [phone] Phone Care Team Providers Care Waiter/Waitress Take Out Name Role Phone Estrellita Strickland MD Primary Care Provider Unavailabl e Encounter Details Date Type Department Care Team (Late st Contact Info) Description 12/17/2009 Documentation [facility] [address] [place] [address] Family Medicine, Physician [address] [place] [address] Social History Tobacco Use Types Packs/Day Years [...] on filedocumented in this encounter Care Teams Waiter/Waitress Take Out Relationship Specialty Start Date End Date Estrellita Strickland MD PCP - General 03/11/17 documented as of this encounter
--- OUTSIDE RECORDS SUMMARY | 2024-09-24 10:16 | XMS_ITS | Encounter Summary ---
Author Organization [facility] Address [address] [place] [phone] Phone Care Team Providers Care Skiver Counter Name Role Phone Estrellita Strickland MD Primary Care Provider Unavailabl e Encounter Details Date Type Department Care Team (Late st Contact Info) Description 06/14/2011 Documentation [facility] [address] [place] [address] Family Medicine, Physician [address] [place] [address] Social History Tobacco Use Types Packs/Day Years [...] on filedocumented in this encounter Care Teams Skiver Counter Relationship Specialty Start Date End Date Estrellita Strickland MD PCP - General 03/11/17 documented as of this encounter
--- OUTSIDE RECORDS SUMMARY | 2024-09-24 10:16 | XMS_ITS | Encounter Summary ---
Author Organization [facility] Address [address] [place] [phone] Phone Care Team Providers Care Pharmacy Graduate Intern Name Role Phone Estrellita Strickland MD Primary Care Provider Unavailabl e Encounter Details Date Type Department Care Team (Late st Contact Info) Description 12/17/2009 Documentation [facility] [address] [place] [address] Family Medicine, Physician [address] [place] [address] Social History Tobacco Use Types Packs/Day Years [...] on filedocumented in this encounter Care Teams Pharmacy Graduate Intern Relationship Specialty Start Date End Date Estrellita Strickland MD PCP - General 03/11/17 documented as of this encounter
--- OUTSIDE RECORDS SUMMARY | 2024-09-24 10:16 | XMS_ITS | Clinical Summary ---
Author Organization [facility] Address [address] [place] [address] Phone Care Team Providers Care Cloth Winder Machine Operator Name Role Phone Estrellita Strickland [...] age to complete this topic Care Teams Cloth Winder Machine Operator Relationship Specialty Start Date End Date Estrellita Strickland MD PCP - General 03/11/17
--- OUTSIDE RECORDS SUMMARY | 2024-09-24 10:16 | XMS_ITS | Encounter Summary ---
Author Organization [facility] Address [address] [place] [phone] Phone Care Team Providers Care Dimension Mill Worker Name Role Phone Estrellita Strickland MD Primary Care Provider Unavailabl e Encounter Details Date Type Department Care Team (Late st Contact Info) Description 07/14/2011 Documentation [facility] [address] [place] [address] Family Medicine, Physician [address] [place] [address] Social History Tobacco Use Types Packs/Day Years [...] on filedocumented in this encounter Care Teams Dimension Mill Worker Relationship Specialty Start Date End Date Estrellita Strickland MD PCP - General 03/11/17 documented as of this encounter
--- OUTSIDE RECORDS SUMMARY | 2024-09-24 10:16 | XMS_ITS | Encounter Summary ---
Author Organization [facility] Address [address] [place] [address] Phone Care Team Providers Care Orange Peel Operator Name Role Phone Estrellita Strickland MD Primary Care Provider Unavailabl e Encounter Details Date Type Department Care Team (Late st Contact Info) Description 06/02/2017 Conversion Encounter [facility] - [address] [phone] Social History Tobacco Use Types Packs/Day Years [...] on filedocumented in this encounter Care Teams Orange Peel Operator Relationship Specialty Start Date End Date Estrellita Strickland MD PCP - General 03/11/17 documented as of this encounter
--- OUTSIDE RECORDS SUMMARY | 2024-09-24 10:16 | XMS_ITS | Clinical Summary ---
Author Organization [facility] ity Address [address] [place] [address] Care Team Providers Care Embedded Software Developer Name Role Phone Unavailable Primary Care Provider [...]
== END 2024-09-24 10:49 | disposition home or self-care (01) ==
PROVIDERS: PCP Internal Medicine; Visit Provider Nurse Practitioner Family
DX: J10.1 Influenza due to other identified influenza virus with other respiratory manifestations (principal)

== ENCOUNTER 2024-09-24 09:28 | Outpatient (REF) | payer MEDICARE, MEDICAID, SELFPAY ==
--- NOTE | ~2024-09-24 | XR_ITS ---
EXAMINATION: XR CHEST CLINICAL INFORMATION: J10.1 - Influenza due to other identified influenza virus with other res... COMPARISON: 04/25/2021. 08/26/2019. TECHNIQUE: 2 views of the chest were obtained. FINDINGS: The cardiac, hilar, and mediastinal contours are normal. Robust inspiratory effort. Lungs demonstrate a left lower lobe airspace opacity. The right lung is clear. There is no pneumothorax or pleural effusion. There is no focal osseous or soft tissue abnormality. XR/XR chest 2V IMPRESSION: 1. Right lower lobe pneumonia. Recommend radiographic follow-up after treatment. Electronically signed by: Andrez Leavitt MD 09/24/2024 11:14 AM DACIA
--- OUTSIDE RECORDS SUMMARY | 2024-09-24 12:09 | XMS_ITS | Encounter Summary ---
Author Organization [facility] Address [address] [place] [address] Phone Care Team Providers Care Customer Support Assistant Name Role Phone Estrellita Strickland MD Primary Care Provider Unavailabl e Encounter Details Date Type Department Care Team (Late st Contact Info) Description 06/14/2011 Documentation [facility] [address] [place] [address] Family Medicine, Physician [address] [place] [address] Social History Tobacco Use Types Packs/Day Years [...] on filedocumented in this encounter Care Teams Customer Support Assistant Relationship Specialty Start Date End Date Estrellita Strickland MD PCP - General 03/11/17 documented as of this encounter
--- OUTSIDE RECORDS SUMMARY | 2024-09-24 12:09 | XMS_ITS | Encounter Summary ---
Author Organization [facility] Address [address] [place] [phone] Phone Care Team Providers Care Car Shifter Name Role Phone Estrellita Strickland MD Primary Care Provider Unavailabl e Encounter Details Date Type Department Care Team (Late st Contact Info) Description 12/17/2009 Documentation [facility] [address] [place] [address] Family Medicine, Physician [address] [place] [address] Social History Tobacco Use Types Packs/Day Years [...] on filedocumented in this encounter Care Teams Car Shifter Relationship Specialty Start Date End Date Estrellita Strickland MD PCP - General 03/11/17 documented as of this encounter
--- OUTSIDE RECORDS SUMMARY | 2024-09-24 12:09 | XMS_ITS | Clinical Summary ---
Author Organization [facility] Address [address] [place] [address] Phone Care Team Providers Care Pattern Assembler Name Role Phone Estrellita Strickland MD Primary [...] age to complete this topic Care Teams Pattern Assembler Relationship Specialty Start Date End Date Estrellita Strickland MD PCP - General 03/11/17
--- OUTSIDE RECORDS SUMMARY | 2024-09-24 12:09 | XMS_ITS | Encounter Summary ---
Author Organization [facility] Address [address] [place] [phone] Phone Care Team Providers Care Judicial Clerk Name Role Phone Estrellita Strickland MD Primary Care Provider Unavailabl e Encounter Details Date Type Department Care Team (Late st Contact Info) Description 12/17/2009 Documentation [facility] [address] [place] [address] Family Medicine, Physician [address] [place] [address] Social History Tobacco Use Types Packs/Day Years [...] on filedocumented in this encounter Care Teams Judicial Clerk Relationship Specialty Start Date End Date Estrellita Strickland MD PCP - General 03/11/17 documented as of this encounter
--- OUTSIDE RECORDS SUMMARY | 2024-09-24 12:09 | XMS_ITS | Clinical Summary ---
Author Organization [facility] ity Address [address] [place] [address] Care Team Providers Care Architectural Drafter Name Role Phone Unavailable Primary Care Provider [...]
--- OUTSIDE RECORDS SUMMARY | 2024-09-24 12:09 | XMS_ITS | Encounter Summary ---
Author Organization [facility] Address [address] [place] [phone] Phone Care Team Providers Care Riveter Helper Name Role Phone Estrellita Strickland MD Primary Care Provider Unavailabl e Encounter Details Date Type Department Care Team (Late st Contact Info) Description 07/14/2011 Documentation [facility] [address] [place] [address] Family Medicine, Physician [address] [place] [address] Social History Tobacco Use Types Packs/Day Years [...] on filedocumented in this encounter Care Teams Riveter Helper Relationship Specialty Start Date End Date Estrellita Strickland MD PCP - General 03/11/17 documented as of this encounter
--- OUTSIDE RECORDS SUMMARY | 2024-09-24 12:09 | XMS_ITS | Encounter Summary ---
Author Organization [facility] Address [address] [place] [address] Phone Care Team Providers Care Hat Body Inspector Name Role Phone Estrellita Strickland MD Primary Care Provider Unavailabl e Encounter Details Date Type Department Care Team (Late st Contact Info) Description 06/02/2017 Conversion Encounter [facility] - [address] [phone] Social History Tobacco Use Types Packs/Day Years [...] on filedocumented in this encounter Care Teams Hat Body Inspector Relationship Specialty Start Date End Date Estrellita Strickland MD PCP - General 03/11/17 documented as of this encounter
== END 2024-09-24 09:29 | disposition home or self-care (01) ==
LOC: HO.HMGCX 09:28
PROVIDERS: PCP Internal Medicine; Visit Provider Nurse Practitioner Family
DX: J10.1 Influenza due to other identified influenza virus with other respiratory manifestations (principal)
CPT/HCPCS: 71046; 99212

== ENCOUNTER → 2024-09-24 10:48 | Outpatient (BNV) | payer MEDICARE, MEDICAID, SELFPAY | PROVIDERS: PCP Internal Medicine; Visit Provider Radiology Diagnostic Radiology | DX: J10.1 Influenza due to other identified influenza virus with other respiratory manifestations (principal) | CPT/HCPCS: 71046 ==

== ENCOUNTER 2024-10-01 09:49 | Emergency (ER) | payer MEDICARE, MEDICAID, SELFPAY ==
--- NOTE | ~2024-10-01 | XR_ITS ---
.EXAMINATION: XR CHEST CLINICAL INFORMATION: RECENT PNEUMIA, R SIDED LUNG PAIN COMPARISON: September 24, 2024. TECHNIQUE: 2 views of the chest were obtained. FINDINGS: No gross consolidation, pleural effusion or pneumothorax. Cardiomediastinal silhouette size is normal. Osseous structures are intact. XR/XR chest 2V IMPRESSION: Resolved pneumonia. Overall improved. Electronically signed by: Nas Saeed MD 10/01/2024 10:49 AM DACIA
[2024-10-01 10:19] VITALS: BP 132/79; PULSE 80; RESP 18; TEMP 36.8; O2SAT 97; BMI 17.8
[2024-10-01 10:38] LABS: MANUAL DIFF FLAG NO
[2024-10-01 10:42] LABS: Basophils Absolute Auto 0.1 X10*3/uL (0.0-0.2); Basophils Percent Auto 0.7 % (0-2); Eosinophils Absolute Auto 0.2 X10*3/uL (0.0-0.4); Eosinophils Percent Auto 2.5 % (0-4); Hematocrit 43.6 % (42.0-52.0); Hemoglobin 14.2 g/dl (14.0-18.0); Imm Gran Abs Auto 0.05 X10*3/uL (0.00-0.03); Imm Gran Pct Auto 0.5 % (0.0-0.4); Lymphocytes Absolute Auto 1.9 X10*3/uL (1.2-4.9); Lymphocytes Percent Auto 19.3 % (20-40); Mean Corpuscular HGB Conc 32.6 g/dl (31.0-36.0); Mean Corpuscular Hemoglobin 27.6 pg (27.0-33.0); Mean Corpuscular Volume 84.8 fL (80.0-98.0); Mean Platelet Volume 8.8 fL (9.4-12.4); Monocytes Absolute Auto 0.6 X10*3/uL (0.1-1.2); Monocytes Percent Auto 5.7 % (2-11); Neutrophils Absolute Auto 6.9 x10*3/uL (2.0-8.3); Neutrophils Percent Auto 71.3 % (45-73); Platelet Count 503 X10*3/uL (160-400); Red Blood Count 5.14 X10*6/uL (4.60-5.80); Red Cell Distribution Width 12.6 % (11.0-16.0); White Blood Count 9.7 X10*3/uL (4.8-10.8)
[2024-10-01 10:54] LABS: Anion Gap 12 (12-20); Blood Urea Nitrogen 11 mg/dL (9-16); Calcium 9.4 mg/dL (8.4-10.2); Carbon Dioxide 29 mmol/L (22-29); Chloride 105 mmol/L (96-108); Creatinine Clr Calc Pharmacy 110.5; Estimated Glomerular Filt Rate > 60; Glucose Random 91 mg/dL (60-115); Potassium 4.1 mmol/L (3.3-5.1); Sodium 142 mmol/L (135-145)
[2024-10-01 11:32] LABS: IDNOW Serial# 58CA691E; Strep A Nucleic Acid Negative (Negative)
--- NOTE | 2024-10-01 14:48 | ED.GENADULT ---
HPI - General Adult General Chief complaint: General Medical Stated complaint: rib pain Time Seen by Provider: 10/01/24 14:48 Source: patient Mode of arrival: ambulatory Limitations: no limitations History of Present Illness ED Provider: Mony Harp PA-C HPI narrative: Patient is a 33 year old assigned male at with a history of anxiety and asthma presenting to the emergency department today with right sided rib pain. Patient states that he recently had pneumonia and he continues to have right sided rib pain and a sore throat. Patient denies any dizziness, lightheadedness, abdominal pain, nausea, vomiting, fever, chills, blurry vision, double vision, loss of vision, chest pain, difficulty breathing, shortness of breath, back pain, night sweats, pain with urination, increased urinary frequency, increased urinary urgency, blood in his urine or stool, syncope or a near syncopal episode, recent trauma or falls, bowel incontinence, bladder incontinence, or any other complaints at this time. Onset (ago): day(s) Location: right (rib) Severity: mild Relieving factors: none Exacerbating factors: none Associated symptoms: denies other symptoms Treatments prior to arrival: none Related Data Home Medications ?Medication ?Instructions ?Recorded ?Confirmed bupropion HCl 300 mg 24 hr tablet, 300 mg PO QAM 03/17/21 09/07/24 extended release clonidine HCl 0.1 mg tablet 0.1 mg PO BEDTIME 03/17/21 09/07/24 sertraline 50 mg tablet 50 mg PO QAM 03/17/21 09/07/24 clonazepam 1 mg tablet 1.5 mg PO BID PRN 09/07/24 09/07/24 Previous Rx's ?Medication ?Instructions ?Recorded omeprazole 20 mg capsule,delayed 20 mg PO DAILY 90 days #90 caps 09/07/24 release albuterol sulfate 90 mcg/actuation 2 puff inhalation Q6H PRN 09/21/24 aerosol inhaler shortness of breath or wheezing or cough #8.5 grams benzonatate 200 mg capsule 200 mg PO .qhs PRN cough #14 caps 09/21/24 amoxicillin 875 mg-potassium 1 tab PO BID 10 days #20 tabs 09/24/24 clavulanate 125 mg tablet doxycycline hyclate 100 mg capsule 100 mg PO BID 10 days #20 caps 09/24/24 Allergies Allergy/AdvReac Type Severity Reaction Status Date / Time bupropion [BUPROPION] Allergy Unknown Vomiting, Verified 10/01/24 10:22 diarrhea ciprofloxacin Allergy Unknown fever,rash Verified 10/01/24 10:22 citalopram [From CELEXA] Allergy Unknown UNKNOWN Verified 10/01/24 10:22 desvenlafaxine [From PRISTIQ] Allergy Unknown UNKNOWN Verified 10/01/24 10:22 ibuprofen [From MOTRIN] Allergy Unknown UNKNOWN Verified 10/01/24 10:22 mirtazapine [Remeron] Allergy Unknown ? Verified 10/01/24 10:22 naproxen [NAPROXEN] Allergy Unknown UNKNOWN Verified 10/01/24 10:22 sertraline [SERTRALINE] Allergy Unknown vomiting, Verified 10/01/24 10:22 diarrhea trazodone [TRAZODONE] Allergy Unknown UNKNOWN Verified 10/01/24 10:22 venlafaxine [From EFFEXOR] Allergy Unknown Vomiting, Verified 10/01/24 10:23 diarrhea vortioxetine Allergy Unknown palpation Verified 10/01/24 10:23 [From BRINTELLIX] zolpidem [From AMBIEN] Allergy Unknown UNKNOWN Verified 10/01/24 10:23 quetiapine [QUETIAPINE] AdvReac Unknown palpation Verified 10/01/24 10:23 Pristiq Allergy Unknown vomiting, Uncoded 10/01/24 10:23 upset stomach Review of Systems Constitutional: Constitutional: Reports no additional constitutional complaints, Denies chills, Denies fever(s) and Denies night sweats Eyes: Eyes: Reports no additional eye complaints, Denies blurry vision, Denies change in vision, Denies diplopia, Denies eye discharge, Denies loss of vision and Denies eye pain ENT: Denies dizziness Cardiovascular: Cardiovascular: Reports no additional cardiovascular complaints, Denies chest pain, Denies lightheadedness, Denies Loss of Consciousness and Denies dyspnea Respiratory: Respiratory: Reports no additional respiratory complaints and Denies dyspnea Gastrointestinal: Gastrointestinal: Reports no additional gastrointestinal complaints, Denies abdominal pain, Denies melena, Denies hematochezia, Denies change in bowel habits and Denies change in stool character Genitourinary: Genitourinary: Reports no additional male genitourinary complaints, Denies hematuria, Denies oliguria, Denies difficulty urinating, Denies dysuria, Denies urinary frequency, Denies urinary hesitancy, Denies urinary incontinence and Denies urinary urgency Musculoskeletal: Musculoskeletal: Reports no additional musculoskeletal complaints, Denies numbness and Denies tingling Comments: right rib pain Neurologic: Denies dizziness, Denies loss of vision, Denies numbness and Denies tingling Psychiatric: Psychiatric: Reports no additional psychiatric complaints Endocrine: Endocrine: Reports no additional endocrine complaints Hematologic/Lymphatic: Hematologic/Lymphatic: Reports no additional hematologic/lymphatic complaints Allergic/Immunologic: Allergic/Immunologic: Reports no additional allergic/immunologic complaints [facility] Past Medical History Attestation statement: The following information was validated with the patient. Source: old records reviewed and nursing notes reviewed Medical History Pneumonia due to influenza Influenza A History of alcohol use disorder Asthma Depression Anxiety Knee pain Left hip pain Low back pain Surgical History History of wisdom tooth extraction Family History Family History Father Medical history unknown Mental health disorder Mother Medical history unknown Mental health disorder Maternal Grandfather Myocardial infarction Maternal Uncle No problems noted. Social History Social History Housing: Apartment Alcohol intake: former Comment: states that he is 2 years sober now as of 09/07/2024 Patient Tobacco Use Status: Former Tobacco user Tobacco use type: Cigarette e-Cigarette/Vaping Use: Currently Using Second Hand Smoke Exposure: Yes Advance Directives: No Advance Directives Information Provided: Yes service: No Current occupational status: disabled Cognitive needs: No Hearing needs: No Vision needs: No Physical Exam ED Vital Signs: Vital Signs - 24 hr 10/01/24 10:19 Temperature 98.2 F Pulse Rate 80 Respiratory Rate 18 Blood Pressure 132/79 Pulse Oximetry 97 Oxygen Delivery Method Room Air BMI result Body Mass Index 17.8 Const General: cooperative, no acute distress, alert and awake Nutritional Appearance: well nourished Orientation/consciousness: patient oriented x3 Limitations: no limitations HENMT Head: Yes normal to inspection and Yes atraumatic Ears: hearing grossly normal bilaterally and external ears normal General nose exam: Normal external nose present, no nasal discharge noted and no epistaxis Face and sinus: Yes normal facial exam, No abrasion and No laceration Mouth: Normal oral and palatal mucosa present, no drooling and no muffled voice Eyes General: appearance normal, both eyes and all related structures Periorbital: periorbital findings normal Eyelids: Yes eyelids normal Conjunctivae: conjunctivae normal Pupils: Equal, round and reactive pupils present EOM: EOMs intact bilaterally Neck Neck: Yes normal visual inspection, Yes full ROM and Yes no lymphadenopathy Chest Chest palpation & inspection: normal inspection of the chest Resp Effort & Inspection: normal respiratory effort and able to speak in complete sentences GI Inspection: Yes normal to inspection Neuro General: patient oriented x3, moves all extremities and CN's II-XI intact bilaterally Cranial nerves: Yes Equal, round and reactive pupils present Cognition (Neuro): normal cognition Extrem General: Yes normal to inspection, Yes full ROM and Yes capillary refill normal Psych Appearance: grossly normal Mental Status: mental status grossly normal Affect: normal affect Attitude: cooperative Thought process: Normal thought process present Thought content: Normal thought content present Insight: Good insight present (Psych) Medical Decision Making Medical Decision Making MDM Narrative: Patient is a 33 year old assigned male at with a history of anxiety and asthma presenting to the emergency department today with right sided rib pain. Patient's physical exam was unremarkable. Patient's blood work was unremarkable. Patient's chest x-ray showed no acute process. I explained my physical exam findings as well as all test results to the patient. I answered all questions asked by the patient. Patient stated that he would like to be discharged and did not want to get an EKG or any additional swabs done at this time. I stressed the importance of the patient taking his medication as directed (either prescribed or as the over the counter packaging recommends). I stressed the importance of the patient following up with his primary care provider. I stressed the importance of the patient returning to the emergency department immediately if his symptoms were to worsen or if he were to develop any dizziness, shortness of breath, difficulty breathing, chest pain, blurry vision, loss of vision, nausea, vomiting, abdominal pain, fever, chills, back pain, or any other complaints. Patient verbalized agreement and understanding with this treatment plan and discharge. Differential Diagnosis Differential Diagnoses: The differential diagnosis associated with the presentation includes Rib pain Chest wall pain Admission/Observation Consideration of admission/observation: Escalation of care including admission/observation considered Patient would have been admitted to the hospital had his work up had any findings where hospital admission was appropriate and his clinical presentation warranted hospital admission. Lab Data [facility] Lab Attestation statement: I reviewed the patient's lab results. My interpretation of these results are in the MDM Rationale portion of this note. 10/01/24 10:31 10/01/24 10:32 Labs: Lab Results 10/01/24 10/01/24 Range/Units 10:31 10:32 WBC 9.7 (4.8-10.8) X10*3/uL RBC 5.14 (4.60-5.80) X10*6/uL Hgb 14.2 (14.0-18.0) g/dl Hct 43.6 (42.0-52.0) % MCV 84.8 (80.0-98.0) fL MCH 27.6 (27.0-33.0) pg MCHC 32.6 (31.0-36.0) g/dl RDW 12.6 (11.0-16.0) % Plt Count 503 H D (160-400) X10*3/uL MPV 8.8 L (9.4-12.4) fL Immature Gran % (Auto) 0.5 H (0.0-0.4) % Neut % (Auto) 71.3 (45-73) % Lymph % (Auto) 19.3 L (20-40) % [place] % (Auto) 5.7 (2-11) % Eos % (Auto) 2.5 (0-4) % Baso % (Auto) 0.7 (0-2) % Lymph # (Auto) 1.9 (1.2-4.9) X10*3/uL [place] # (Auto) 0.6 (0.1-1.2) X10*3/uL Eos # (Auto) 0.2 (0.0-0.4) X10*3/uL Baso # (Auto) 0.1 (0.0-0.2) X10*3/uL Abs Immat Gran (auto) 0.05 H (0.00-0.03) X10*3/uL Absolute Neuts (auto) 6.9 (2.0-8.3) x10*3/uL Absolute Nucleated RBC 0.000 (0.0-0.012) X10*3/uL Nucleated RBC % (auto) 0.0 (0.0-0.2) /100WBC Sodium 142 (135-145) mmol/L Potassium 4.1 (3.3-5.1) mmol/L Chloride 105 (96-108) mmol/L Carbon Dioxide 29 (22-29) mmol/L Anion Gap 12 (12-20) BUN 11 (9-16) mg/dL Creatinine 0.72 (0.5-1.4) mg/dL Estim Creat Clear Calc 110.5 Estimated GFR > 60 Random Glucose 91 (60-115) mg/dL Calcium 9.4 (8.4-10.2) mg/dL S. pyogenes GrpA IMANI Negative (Negative) Independent Interpretation I performed an independent interpretation of an: Plain X-Ray Interpretation: My interpretation is in agreement with the radiologist's impression of this imaging study. EXAMINATION: XR CHEST CLINICAL INFORMATION: RECENT PNEUMIA, R SIDED LUNG PAIN COMPARISON: September 24, 2024. TECHNIQUE: 2 views of the chest were obtained. FINDINGS: No gross consolidation, pleural effusion or pneumothorax. Cardiomediastinal silhouette size is normal. Osseous structures are intact. XR/XR chest 2V IMPRESSION: Resolved pneumonia. Overall improved. Electronically signed by: Nas Saeed MD 10/01/2024 10:49 AM EST Dictated By: Nas Joyce MD Signed By: Electronically signed by Nas Duarte MD 10/01/24 1049 Radiology Impression Discussion of test interpretation with radiology: I have reviewed the radiologist's reading. Tests considered The following testing was considered but not selected: I considered obtaining an EKG and COVID, RSV, influenza swabs however - the patient declined this testing at this time because he wanted to leave. Discharge Plan Discharge Clinical Impression: Pain in rib Patient Disposition: Home, Self-Care Instructions: Rib Contusion (ED) Additional Instructions: Follow up with your primary care provider. Return to the emergency department immediately if your symptoms worsen or if you develop any dizziness, shortness of breath, difficulty breathing, chest pain, blurry vision, loss of vision, nausea, vomiting, abdominal pain, fever, chills, back pain, or any other complaints. Prescriptions: No Action doxycycline hyclate 100 mg capsule 100 mg PO BID 10 Days Qty: 20 0RF amoxicillin-pot clavulanate 875-125 mg tablet 1 tab PO BID 10 Days Qty: 20 0RF bupropion HCl 300 mg tablet extended release 24 hr 300 mg PO QAM clonidine HCl 0.1 mg tablet 0.1 mg PO BEDTIME sertraline 50 mg tablet 50 mg PO QAM clonazepam 1 mg tablet 1.5 mg PO BID PRN omeprazole 20 mg capsule,delayed release(DR/EC) 20 mg PO DAILY 90 Days Qty: 90 1RF benzonatate 200 mg capsule 200 mg PO .qhs PRN (Reason: cough) Qty: 14 0RF albuterol sulfate 90 mcg/actuation HFA aerosol inhaler 2 puff inhalation Q6H PRN (Reason: shortness of breath or wheezing or cough) Qty: 8.5 0RF Referrals: Pop Umana MD [Primary Care Provider] - Interventions: ED Discharge Assessment Last Done: 10/01/24 15:04 Print Language: Italian
[2024-10-01 15:04] VITALS: BP 132/79; PULSE 80; RESP 18; TEMP 36.8; O2SAT 97
--- OUTSIDE RECORDS SUMMARY | 2024-10-01 17:43 | XMS_ITS | Clinical Summary ---
Author Organization [facility] Address [address] [place] [phone] Phone Care Team Providers Care Plastic Extrusion Operator Name Role Phone Estrellita Strickland MD [...] age to complete this topic Care Teams Plastic Extrusion Operator Relationship Specialty Start Date End Date Estrellita Strickland MD PCP - General 03/11/17
--- OUTSIDE RECORDS SUMMARY | 2024-10-01 17:43 | XMS_ITS | Encounter Summary ---
Author Organization [facility] Address [address] [place] [address] Phone Care Team Providers Care It Support Engineer Name Role Phone Estrellita Strickland MD Primary Care Provider Unavailabl e Encounter Details Date Type Department Care Team (Late st Contact Info) Description 07/14/2011 Documentation [facility] [address] [place] [address] Family Medicine, Physician [address] [place] [address] Social History Tobacco Use Types Packs/Day Years [...] on filedocumented in this encounter Care Teams It Support Engineer Relationship Specialty Start Date End Date Estrellita Strickland MD PCP - General 03/11/17 documented as of this encounter
--- OUTSIDE RECORDS SUMMARY | 2024-10-01 17:43 | XMS_ITS | Encounter Summary ---
Author Organization [facility] Address [address] [place] [phone] Phone Care Team Providers Care Rn Spine Name Role Phone Estrellita Strickland MD Primary Care Provider Unavailabl e Encounter Details Date Type Department Care Team (Late st Contact Info) Description 06/14/2011 Documentation [facility] [address] [place] [address] Family Medicine, Physician [address] [place] [address] Social History Tobacco Use Types Packs/Day Years [...] on filedocumented in this encounter Care Teams Rn Spine Relationship Specialty Start Date End Date Estrellita Strickland MD PCP - General 03/11/17 documented as of this encounter
--- OUTSIDE RECORDS SUMMARY | 2024-10-01 17:43 | XMS_ITS | Encounter Summary ---
Author Organization [facility] Address [address] [place] [phone] Phone Care Team Providers Care Microbiology Laboratory Manager Name Role Phone Estrellita Strickland MD Primary Care Provider Unavailabl e Encounter Details Date Type Department Care Team (Late st Contact Info) Description 12/17/2009 Documentation [facility] [address] [place] [address] Family Medicine, Physician [address] [place] [address] Social History Tobacco Use Types Packs/Day Years [...] on filedocumented in this encounter Care Teams Microbiology Laboratory Manager Relationship Specialty Start Date End Date Estrellita Strickland MD PCP - General 03/11/17 documented as of this encounter
--- OUTSIDE RECORDS SUMMARY | 2024-10-01 17:43 | XMS_ITS | Clinical Summary ---
Author Organization [employer] [facility] ity Address [address] [place] [address] Care Team Providers Care Paint Stripper Name Role Phone Unavailable Primary Care Provider [...]
--- OUTSIDE RECORDS SUMMARY | 2024-10-01 17:43 | XMS_ITS | Encounter Summary ---
Author Organization [facility] Address [address] [place] [address] Phone Care Team Providers Care Fruit Inspector Name Role Phone Estrellita Strickland MD Primary Care Provider Unavailabl e Encounter Details Date Type Department Care Team (Late st Contact Info) Description 12/17/2009 Documentation [facility] [address] [place] [address] Family Medicine, Physician [address] [place] [address] Social History Tobacco Use Types Packs/Day Years [...] on filedocumented in this encounter Care Teams Fruit Inspector Relationship Specialty Start Date End Date Estrellita Strickland MD PCP - General 03/11/17 documented as of this encounter
--- OUTSIDE RECORDS SUMMARY | 2024-10-01 17:43 | XMS_ITS | Encounter Summary ---
Author Organization [facility] Address [address] [place] [address] Phone Care Team Providers Care Corporate Health Consultant Name Role Phone Estrellita Strickland MD Primary Care Provider Unavailabl e Encounter Details Date Type Department Care Team (Late st Contact Info) Description 06/02/2017 Conversion Encounter [facility] - [address] [address] Social History Tobacco Use Types Packs/Day Years [...] on filedocumented in this encounter Care Teams Corporate Health Consultant Relationship Specialty Start Date End Date Estrellita Strickland MD PCP - General 03/11/17 documented as of this encounter
== END 2024-10-01 15:05 | disposition home or self-care (01) ==
PROVIDERS: Emergency Provider Emergency Medicine; PCP Internal Medicine
DX: R07.81 Pleurodynia (principal); J45.909 Unspecified asthma, uncomplicated
CPT/HCPCS: 71046; 80048; 85025; 87651; 99282; 99283

== ENCOUNTER → 2024-10-01 10:23 | Outpatient (BNV) | payer MEDICARE, MEDICAID, SELFPAY | PROVIDERS: PCP Internal Medicine; Visit Provider Radiology Diagnostic Radiology | DX: R07.1 Chest pain on breathing (principal) | CPT/HCPCS: 71046 ==

== ENCOUNTER 2024-10-04 11:17 | Outpatient (AMB) | payer MEDICARE, MEDICAID, SELFPAY ==
--- NOTE | 2024-10-04 11:21 | A.OFFPC_ITS ---
Vital Signs 10/04/24 11:22 Height 5 ft 8 in Weight 121 lb 4 oz BMI 18.4 BP 116/64 Blood Pressure Location Lt brachial Position Sitting Respiration 18 Pulse 99 Pulse Source Pulse Oximeter Temp 98.2 F Temp Source Oral Pulse Oximetry (%) 95 Oxygen Delivery Method Room Air Intake Visit Reasons: [facility] 3/ rib pain Gauge Maker Apprentice Required: No Accompanied by: Self / Same As Patient Allergies bupropion [BUPROPION] Allergy (Unknown, Verified 10/04/24 11:54) Vomiting, diarrhea ciprofloxacin Allergy (Unknown, Verified 10/04/24 11:25) fever,rash citalopram [From CELEXA] Allergy (Unknown, Verified 10/04/24 11:25) UNKNOWN desvenlafaxine [From PRISTIQ] Allergy (Unknown, Verified 10/04/24 11:25) UNKNOWN ibuprofen [From MOTRIN] Allergy (Unknown, Verified 10/04/24 11:25) UNKNOWN mirtazapine [Remeron] Allergy (Unknown, Verified 10/04/24 11:25) ? naproxen [NAPROXEN] Allergy (Unknown, Verified 10/04/24 11:25) UNKNOWN sertraline [SERTRALINE] Allergy (Unknown, Verified 10/04/24 11:25) vomiting, diarrhea trazodone [TRAZODONE] Allergy (Unknown, Verified 10/04/24 11:25) UNKNOWN venlafaxine [From EFFEXOR] Allergy (Unknown, Verified 10/04/24 11:25) Vomiting, diarrhea vortioxetine [From BRINTELLIX] Allergy (Unknown, Verified 10/04/24 11:25) palpation zolpidem [From AMBIEN] Allergy (Unknown, Verified 10/04/24 11:25) UNKNOWN quetiapine [QUETIAPINE] Adverse Reaction (Unknown, Verified 10/04/24 11:25) palpation Pristiq Allergy (Unknown, Uncoded 10/01/24 10:23) vomiting, upset stomach Medication List - Last Reconciled 10/04/24 by BRAVO Urbina albuterol sulfate 90 mcg/actuation 2 puffs inhalation Q6H PRN bupropion HCl XL 300 mg PO QAM clonazepam 1.5 mg PO BID PRN clonidine HCl 0.1 mg PO BEDTIME omeprazole 20 mg PO DAILY 90 days sertraline 50 mg PO QAM Tobacco use date assessed: 10/04/24 Dental Screening Dental Screen Date: 10/04/24 Did you have a dental visit in the last 12 months?: Yes Did you have a dental problem in the last 6 months where you did not have access to dental care?: No Was dental information given to patient?: Patient has dentist HPI [facility] 10/01 rib pain HPI Details The patient is a 33-year-old male presenting for a post ER visit evaluation Patient presented in [facility] ER complaints of right rib pain The patient develops right rib pain after aggressively coughing In ER xray done-showed resolved pneumonia and no acute findings The patient is currently taking ibuprofen 800mg every 6 hours and Tylenol 1000mg q 4 hours-discussed with patient to stretch this out to every 6 hours instead of four No acute finding during exam. Ordered meloxicam 15 mg daily and lidocaine patch daily for 12 hours Platelets level in the 503, will repeat cbc in 1 week [facility] Medical History Pneumonia due to influenza Influenza A History of alcohol use disorder Asthma Depression Anxiety Knee pain Left hip pain Low back pain Surgical History History of wisdom tooth extraction Family History Father Medical history unknown Mental health disorder Mother Medical history unknown Mental health disorder Maternal Grandfather Myocardial infarction Maternal Uncle No problems noted. Social History Housing: Apartment Alcohol intake: former Comment: states that he is 2 years sober now as of 09/07/2024 Patient Tobacco Use Status: Former Tobacco user Tobacco use type: Cigarette e-Cigarette/Vaping Use: Former Use Second Hand Smoke Exposure: Yes service: No Current occupational status: disabled Cognitive needs: No Hearing needs: No Vision needs: No Questionnaire Thrive Questionnaire Date Thrive assessed: 08/31/24 I am a: Patient What is your living situation today?: I have a steady place to live Within the past 12 months, did the food you bought not last and you didn't have the money to get more?: I choose not to answer this question Within the past 12 months, did you worry whether your food would run out before you got money to buy more?: I choose not to answer this question Do you have trouble paying for medicines?: No Do you have trouble getting transportation to medical appointments?: No Do you have trouble paying your heating and electricity bill?: I choose not to answer this question Do you have trouble taking care of your child, family member or friend?: I choose not to answer this question Do you have trouble with day-to-day activities such as bathing, preparing meals, shopping, managing finances, etc.?: Yes Are you currently unemployed and looking for a job?: I choose not to answer this question Are you interested in more education?: Yes Please select the resources that you would like help with: None Currently or been in a relationship where the following occur: No concerns reported THRIVE Score: 0 GLENNA-7 AMB Questionnaire GLENNA-7 Date GLENNA - 7 assessed: 09/07/24 Source: Developed by Drs. Gucci Dela Cruz, Nguyen Grover, Jose Bowman and colleagues, with an educational zamzam from [employer]. Review of Systems Const Denies headache(s) Eyes Denies loss of vision ENT Denies vertigo, Denies dizziness, Denies headache(s) and Denies sore throat Card Denies chest pain, Denies leg edema and Denies lightheadedness Resp Denies cough, Denies hemoptysis and Denies wheezing GI Denies abdominal pain, Denies melena, Denies constipation, Denies diarrhea, Denies vomiting and Reports other (right rib pain) Denies dysuria, Denies urinary frequency and Denies urinary urgency Musc Denies arthralgias, Denies joint swelling, Denies numbness and Denies tingling Neuro Denies Abnormal speech present, Denies behavioral changes, Denies vertigo, Denies dizziness, Denies headache(s), Denies loss of vision, Denies memory loss, Denies numbness and Denies tingling Psych Denies anxiety, Denies behavioral changes, Denies depression, Denies memory loss and Denies panic attacks Aurelio/Lymph Denies easy bleeding and Denies easy bruising Aller/Immun Denies wheezing Physical exam (Primary Care) Vital Signs: Last Vital Signs Temp 98.2 F 10/04/24 11:22 Pulse 99 10/04/24 11:22 Resp 18 10/04/24 11:22 BP 116/64 10/04/24 11:22 Pulse Ox 95 10/04/24 11:22 Oxygen Delivery Method Room Air 10/04/24 11:22 BMI result Body Mass Index 18.4 Tobacco/Smoking Status: Tobacco use Status Tobacco use date assessed 10/04/24 10/04/24 11:31 Patient Tobacco Use Status Former Tobacco user 10/04/24 11:31 Tobacco use type Cigarette 10/04/24 11:31 e-Cigarette/Vaping Use Former Use 10/04/24 11:31 Thrive Assessment: Date of Thrive Assessment Date Thrive assessed 08/31/24 10/04/24 11:31 Currently or been in a relationship where the following occur: No concerns reported Const General: healthy appearing, no acute distress, alert and awake Nutritional Appearance: well nourished Orientation/consciousness: oriented to person, oriented to place and oriented to time HENMT Ears: TM's normal bilaterally General nose exam: Normal nasal mucous membranes and turbinates present Eyes Conjunctivae: conjunctivae normal Sclerae: sclerae normal Pupils: Equal, round and reactive pupils present Neck Neck: Yes no lymphadenopathy and Yes no JVD Thyroid: Thyroid normal Carotids: no bruits Resp Effort & Inspection: normal respiratory effort and not tachypneic Auscultation: no crackles, no rales, no rhonchi and no wheezes Cardio Rate: regular rate Rhythm: regular rhythm Heart sounds: no murmurs and normal S1 and S2 GI Palpation (GI): Soft to palpation, nontender, no hepatomegaly and no splenomegaly Auscultation: normal bowel sounds Skin General skin exam: no rashes or lesions noted and dry skin Neuro General: oriented to person, oriented to place and oriented to time Cranial nerves: Yes Equal, round and reactive pupils present Speech: No Abnormal speech present Gait exam (Neuro): Normal gait present Motor exam (neuro): no tremor noted Extrem Right upper extremity: full ROM Left upper extremity: full ROM Right lower extremity: full ROM; no edema Left lower extremity: full ROM; no edema Psych Mental Status: mental status grossly normal Speech and movement: Normal speech and movement present Affect: normal affect Attitude: cooperative Thought process: Normal thought process present Coding Level of Care Code Est Pt Level 3 (64868) Diagnoses Elevated platelet count R79.89 Rib pain on right side R07.81 Time Spent (min) 29 Assessment & Plan Assessment & Plan (1) Elevated platelet count: Code(s): R79.89 - Other specified abnormal findings of blood chemistry Category: Medical Plan: platelets level 503 in hospital. Will recheck cbc in 1 week (2) Rib pain on right side: Code(s): R07.81 - Pleurodynia Category: Medical Plan: Reports right rib pain after aggressively coughing during his illness of pneumonia-tx completed xray done in ER showed resolved pneumonia and no acute findings Patient reports that the pain was intense, he took ibuprofen 800mg q6H and Tylenol q4 without significant relief. Discussed with the patient to change the frequency of the Tylenol to Q6H to avoid going over the maximum amount of the Ty lenol/24 hours Will start the pain on Meloxicam 15 mg and lidocaine patch. The patient has ibuprofen allergy in his chart. He reports that he was getting abdominal pain the past and did not that it was just a side effect. Reinforced not taking any other NSAIDs while taking the meloxicam. Encouraged the patient to continue activity as tolerated Orders: Orders Complete Blood Count Auto Diff 1 Week R79.89 - Other specified abnormal findings of blood chemistry Medications: New meloxicam 15 mg PO DAILY 60 tabs 2RF R07.81 - Pleurodynia lidocaine 5% leave on most painful area for up to 12 hrs 1 patch topical DAILY 30 ea 0RF R07.81 - Pleurodynia
[2024-10-04 11:22] VITALS: BP 116/64; PULSE 99; RESP 18; TEMP 36.8; O2SAT 95; BMI 18.4
--- OUTSIDE RECORDS SUMMARY | 2024-10-04 13:52 | XMS_ITS | Encounter Summary ---
Author Organization [facility] Address [address] [place] [address] Phone Care Team Providers Care Information Clerk Brokerage Name Role Phone Estrellita Strickland MD Primary Care Provider Unavailabl e Encounter Details Date Type Department Care Team (Late st Contact Info) Description 12/17/2009 Documentation [facility] [address] [place] [address] Family Medicine, Physician [address] [place] [address] Social History Tobacco Use Types Packs/Day Years [...] on filedocumented in this encounter Care Teams Information Clerk Brokerage Relationship Specialty Start Date End Date Estrellita Strickland MD PCP - General 03/11/17 documented as of this encounter
--- OUTSIDE RECORDS SUMMARY | 2024-10-04 13:52 | XMS_ITS | Encounter Summary ---
Author Organization [facility] Address [address] [place] [address] Phone Care Team Providers Care Coremaker Experimental Name Role Phone Estrellita Strickland MD Primary Care Provider Unavailabl e Encounter Details Date Type Department Care Team (Late st Contact Info) Description 06/02/2017 Conversion Encounter [facility] - [address] [address] Social History Tobacco Use Types Packs/Day Years [...] on filedocumented in this encounter Care Teams Coremaker Experimental Relationship Specialty Start Date End Date Estrellita Strickland MD PCP - General 03/11/17 documented as of this encounter
--- OUTSIDE RECORDS SUMMARY | 2024-10-04 13:52 | XMS_ITS | Encounter Summary ---
Author Organization [facility] Address [address] [place] [address] Phone Care Team Providers Care Campus Recruiter Name Role Phone Estrellita Strickland MD Primary Care Provider Unavailabl e Encounter Details Date Type Department Care Team (Late st Contact Info) Description 06/14/2011 Documentation [facility] [address] [place] [address] Family Medicine, Physician [address] [place] [address] Social History Tobacco Use Types Packs/Day Years [...] on filedocumented in this encounter Care Teams Campus Recruiter Relationship Specialty Start Date End Date Estrellita Strickland MD PCP - General 03/11/17 documented as of this encounter
--- OUTSIDE RECORDS SUMMARY | 2024-10-04 13:52 | XMS_ITS | Clinical Summary ---
Author Organization [employer] [facility] ity Address [address] [place] [address] Care Team Providers Care Felt Coverer Name Role Phone Unavailable Primary Care Provider [...]
--- OUTSIDE RECORDS SUMMARY | 2024-10-04 13:52 | XMS_ITS | Encounter Summary ---
Author Organization [facility] Address [address] [place] [address] Phone Care Team Providers Care Director Of Public Works Name Role Phone Estrellita Strickland MD Primary Care Provider Unavailabl e Encounter Details Date Type Department Care Team (Late st Contact Info) Description 12/17/2009 Documentation [facility] [address] [place] [address] Family Medicine, Physician [address] [place] [address] Social History Tobacco Use Types Packs/Day Years [...] on filedocumented in this encounter Care Teams Director Of Public Works Relationship Specialty Start Date End Date Estrellita Strickland MD PCP - General 03/11/17 documented as of this encounter
--- OUTSIDE RECORDS SUMMARY | 2024-10-04 13:52 | XMS_ITS | Encounter Summary ---
Author Organization [facility] Address [address] [place] [address] Phone Care Team Providers Care Log Deckman Name Role Phone Estrellita Strickland MD Primary Care Provider Unavailabl e Encounter Details Date Type Department Care Team (Late st Contact Info) Description 07/14/2011 Documentation [facility] [address] [place] [address] Family Medicine, Physician [address] [place] [address] Social History Tobacco Use Types Packs/Day Years [...] on filedocumented in this encounter Care Teams Log Deckman Relationship Specialty Start Date End Date Estrellita Strickland MD PCP - General 03/11/17 documented as of this encounter
--- OUTSIDE RECORDS SUMMARY | 2024-10-04 13:52 | XMS_ITS | Clinical Summary ---
Author Organization [facility] Address [address] [place] [address] Phone Care Team Providers Care Adjunct Instructor Name Role Phone Estrellita Strickland MD Primary [...] age to complete this topic Care Teams Adjunct Instructor Relationship Specialty Start Date End Date Estrellita Strickland MD PCP - General 03/11/17
== END 2024-10-04 12:50 | disposition home or self-care (01) ==
PROVIDERS: PCP Internal Medicine
DX: R79.89 Other specified abnormal findings of blood chemistry (principal); R07.81 Pleurodynia

== ENCOUNTER → 2024-10-04 11:17 | Outpatient (BNVA) | payer MEDICARE, MEDICAID, SELFPAY | PROVIDERS: PCP Internal Medicine | DX: R79.89 Other specified abnormal findings of blood chemistry (principal); R07.81 Pleurodynia | CPT/HCPCS: 99212 ==

== ENCOUNTER 2024-10-10 09:39 | Outpatient (REF) | payer MEDICARE, MEDICAID, SELFPAY ==
--- NOTE | ~2024-10-10 | XR_ITS ---
EXAMINATION: XR RIBS, RIGHT CLINICAL INFORMATION: R07.81 - Pleurodynia COMPARISON: October 01, 2024. TECHNIQUE: 3 views of the right ribs were obtained. FINDINGS: No consolidation, pleural effusion or pneumothorax. Cardiomediastinal silhouette size is normal. No acute cortical disruption in the ribs of the right hemithorax. No gross irregularity at the metallic BB skin marker XR/XR ribs RT min 3V w CXR1V IMPRESSION: No acute rib fracture, right lower hemithorax. No acute airspace disease. Electronically signed by: Nas Saeed MD 10/10/2024 11:46 AM EDT
[2024-10-10 09:49] LABS: MANUAL DIFF FLAG NO
[2024-10-10 10:24] LABS: Basophils Absolute Auto 0.1 X10*3/uL (0.0-0.2); Basophils Percent Auto 0.9 % (0-2); Eosinophils Absolute Auto 0.2 X10*3/uL (0.0-0.4); Eosinophils Percent Auto 2.3 % (0-4); Hematocrit 43.9 % (42.0-52.0); Imm Gran Abs Auto 0.02 X10*3/uL (0.00-0.03); Imm Gran Pct Auto 0.2 % (0.0-0.4); Lymphocytes Absolute Auto 2.2 X10*3/uL (1.2-4.9); Lymphocytes Percent Auto 23.2 % (20-40); Mean Corpuscular HGB Conc 31.9 g/dl (31.0-36.0); Mean Corpuscular Hemoglobin 27.2 pg (27.0-33.0); Mean Corpuscular Volume 85.2 fL (80.0-98.0); Mean Platelet Volume 10.2 fL (9.4-12.4); Monocytes Absolute Auto 0.6 X10*3/uL (0.1-1.2); Monocytes Percent Auto 6.2 % (2-11); Neutrophils Absolute Auto 6.3 x10*3/uL (2.0-8.3); Neutrophils Percent Auto 67.2 % (45-73); Platelet Count 427 X10*3/uL (160-400); Red Blood Count 5.15 X10*6/uL (4.60-5.80); Red Cell Distribution Width 13.2 % (11.0-16.0); White Blood Count 9.3 X10*3/uL (4.8-10.8)
--- OUTSIDE RECORDS SUMMARY | 2024-10-10 10:36 | XMS_ITS | Clinical Summary ---
Author Organization [employer] [facility] ity Address [address] [place] [address] Care Team Providers Care Concrete Gun Operator Name Role Phone Unavailable Primary Care [...]
== END 2024-10-10 09:40 | disposition home or self-care (01) ==
LOC: HO.LAB 09:39
PROVIDERS: PCP Internal Medicine
DX: R07.81 Pleurodynia (principal); R79.89 Other specified abnormal findings of blood chemistry
CPT/HCPCS: 36415; 71101; 85025; 99212

== ENCOUNTER 2024-10-10 09:52 | Outpatient (AMB) | payer MEDICARE, MEDICAID, SELFPAY ==
[2024-10-10 10:17] VITALS: BP 126/74; PULSE 89; RESP 16; TEMP 37; O2SAT 97; BMI 18.5
--- NOTE | 2024-10-10 10:17 | A.OFFPC_ITS ---
Vital Signs 10/10/24 10:17 Height 5 ft 8 in Weight 121 lb 12.8 oz BMI 18.5 BP 126/74 Blood Pressure Location Lt brachial Position Sitting Respiration 16 Pulse 89 Pulse Source Pulse Oximeter Temp 98.6 F Temp Source Oral Pulse Oximetry (%) 97 Oxygen Delivery Method Room Air Intake Visit Reasons: ribs/lungs pain Medical Unit Secretary Required: No Accompanied by: Self / Same As Patient Allergies bupropion [BUPROPION] Allergy (Unknown, Verified 10/16/24 22:11) Vomiting, diarrhea ciprofloxacin Allergy (Unknown, Verified 10/16/24 22:11) fever,rash citalopram [From CELEXA] Allergy (Unknown, Verified 10/16/24 22:11) UNKNOWN desvenlafaxine [From PRISTIQ] Allergy (Unknown, Verified 10/16/24 22:11) UNKNOWN ibuprofen [From MOTRIN] Allergy (Unknown, Verified 10/16/24 22:11) UNKNOWN mirtazapine [Remeron] Allergy (Unknown, Verified 10/16/24 22:11) ? naproxen [NAPROXEN] Allergy (Unknown, Verified 10/16/24 22:11) UNKNOWN sertraline [SERTRALINE] Allergy (Unknown, Verified 10/16/24 22:11) vomiting, diarrhea trazodone [TRAZODONE] Allergy (Unknown, Verified 10/16/24 22:11) UNKNOWN venlafaxine [From EFFEXOR] Allergy (Unknown, Verified 10/16/24 22:11) Vomiting, diarrhea vortioxetine [From BRINTELLIX] Allergy (Unknown, Verified 10/16/24 22:11) palpation zolpidem [From AMBIEN] Allergy (Unknown, Verified 10/16/24 22:11) UNKNOWN quetiapine [QUETIAPINE] Adverse Reaction (Unknown, Verified 10/16/24 22:11) palpation Pristiq Allergy (Unknown, Uncoded 10/16/24 22:11) vomiting, upset stomach Medication List - Last Reconciled 10/10/24 by BRAVO Urbina albuterol sulfate 90 mcg/actuation 2 puffs inhalation Q6H PRN bupropion HCl XL mg PO DAILY clonazepam 1.5 mg PO BID PRN clonidine HCl 0.1 mg PO BEDTIME omeprazole 20 mg PO DAILY 90 days sertraline mg PO DAILY Tobacco use date assessed: 10/10/24 Dental Screening Dental Screen Date: 10/10/24 Did you have a dental visit in the last 12 months?: Yes Did you have a dental problem in the last 6 months where you did not have access to dental care?: No Was dental information given to patient?: Patient has dentist HPI ribs/lungs pain HPI Details The patient was seen ran a week ago for similar concerns Patient is complaining of right rib pain that started after coughing extremely hard The patient went to the emergency room to be evaluated. Chest x-ray showed resolved pneumonia The patient continues to have severe right rib pain. Meloxicam 15 mg ordered on previous and the patient was not able tolerate this medication. Reports that he started hearing stuff and had diarrhea and nausea. He is back to using Ibuprofen 800mg and Tylenol 1000mg alternatively. Will try cyclobenzaprine for at bedtime and also send the patient for rib x-ray [facility] Medical History Pneumonia due to influenza Influenza A History of alcohol use disorder Asthma Depression Anxiety Knee pain Left hip pain Low back pain Surgical History History of wisdom tooth extraction Family History Father Medical history unknown Mental health disorder Mother Medical history unknown Mental health disorder Maternal Grandfather Myocardial infarction Maternal Uncle No problems noted. Social History Housing: Apartment Alcohol intake: former Comment: states that he is 2 years sober now as of 09/07/2024 Patient Tobacco Use Status: Former Tobacco user Tobacco use type: Cigarette e-Cigarette/Vaping Use: Former Use Second Hand Smoke Exposure: Yes service: No Current occupational status: disabled Cognitive needs: No Hearing needs: No Vision needs: No Questionnaire Thrive Questionnaire Date Thrive assessed: 10/10/24 I am a: Patient What is your living situation today?: I have a steady place to live Within the past 12 months, did the food you bought not last and you didn't have the money to get more?: I choose not to answer this question Within the past 12 months, did you worry whether your food would run out before you got money to buy more?: I choose not to answer this question Do you have trouble paying for medicines?: No Do you have trouble getting transportation to medical appointments?: No Do you have trouble paying your heating and electricity bill?: I choose not to answer this question Do you have trouble taking care of your child, family member or friend?: I choose not to answer this question Do you have trouble with day-to-day activities such as bathing, preparing meals, shopping, managing finances, etc.?: Yes Are you currently unemployed and looking for a job?: I choose not to answer this question Are you interested in more education?: Yes Please select the resources that you would like help with: None Currently or been in a relationship where the following occur: No concerns reported THRIVE Score: 0 GLENNA-7 AMB Questionnaire GLENNA-7 Date GLENNA - 7 assessed: 09/07/24 Source: Developed by Drs. Gucci Dela Cruz, Nguyen Grover, Jose Bowman and colleagues, with an educational zamzam from [employer]. Review of Systems ENT Denies sore throat Card Denies chest pain, Denies leg edema and Denies lightheadedness Resp Denies cough and Denies hemoptysis GI Denies abdominal pain, Denies melena, Denies constipation, Denies diarrhea and Denies vomiting Denies dysuria, Denies urinary frequency and Denies urinary urgency Musc Reports other (right rib pain-started from coughing real hard) Physical exam (Primary Care) Vital Signs: Last Vital Signs Temp 98.6 F 10/10/24 10:17 Pulse 89 10/10/24 10:17 Resp 16 10/10/24 10:17 BP 126/74 10/10/24 10:17 Pulse Ox 97 10/10/24 10:17 Oxygen Delivery Method Room Air 10/10/24 10:17 BMI result Body Mass Index 18.5 Tobacco/Smoking Status: Tobacco use Status Tobacco use date assessed 10/10/24 10/10/24 10:30 Patient Tobacco Use Status Former Tobacco user 10/10/24 10:30 Tobacco use type Cigarette 10/10/24 10:30 e-Cigarette/Vaping Use Former Use 10/10/24 10:30 Thrive Assessment: Date of Thrive Assessment Date Thrive assessed 10/10/24 10/10/24 10:30 Currently or been in a relationship where the following occur: No concerns reported Const General: healthy appearing, no acute distress, alert and awake Nutritional Appearance: well nourished HENMT Ears: TM's normal bilaterally General nose exam: Normal nasal mucous membranes and turbinates present Eyes Conjunctivae: conjunctivae normal Sclerae: sclerae normal Neck Neck: Yes no lymphadenopathy and Yes no JVD Thyroid: Thyroid normal Carotids: no bruits Resp Effort & Inspection: normal respiratory effort and not tachypneic Auscultation: no crackles, no rales, no rhonchi and no wheezes Cardio Rate: regular rate Rhythm: regular rhythm Heart sounds: no murmurs and normal S1 and S2 GI Palpation (GI): Soft to palpation, nontender, no hepatomegaly and no splenomegaly Auscultation: normal bowel sounds Skin General skin exam: no rashes or lesions noted and dry skin Coding Level of Care Code Est Pt Level 3 (64471) Diagnoses Rib pain on right side R07.81 Time Spent (min) 29 Assessment & Plan Assessment & Plan (1) Rib pain on right side: Code(s): R07.81 - Pleurodynia Category: Medical Plan: Normal inspection of chest/rib area. Rib x-ray ordered to further evaluate. Cyclobenzaprine 10 mg t.i.d. p.r.n. ordered. Consider sending the patient to PT if x-ray comes back normal for stretching exercises. Continue ibuprofen alternating with Tylenol p.r.n. Orders: Orders XR ribs RT min 3V w CXR1V 10/10/24 R07.81 - Pleurodynia Medications: New cyclobenzaprine 10 mg PO TID PRN 90 tabs 0RF muscle spasm R07.81 - Pleurodynia
--- OUTSIDE RECORDS SUMMARY | 2024-10-10 11:00 | XMS_ITS | Encounter Summary ---
Author Organization [facility] Address [address] [place] [phone] Phone Care Team Providers Care Nuclear Medicine Medical Director Name Role Phone Estrellita Strickland MD Primary Care Provider Unavailabl e Encounter Details Date Type Department Care Team (Late st Contact Info) Description 07/14/2011 Documentation [facility] [address] [place] [address] Family Medicine, Physician [address] [place] [address] Social History Tobacco Use Types Packs/Day Years [...] on filedocumented in this encounter Care Teams Nuclear Medicine Medical Director Relationship Specialty Start Date End Date Estrellita Strickland MD PCP - General 03/11/17 documented as of this encounter
--- OUTSIDE RECORDS SUMMARY | 2024-10-10 11:00 | XMS_ITS | Encounter Summary ---
Author Organization [facility] Address [address] [place] [address] Phone Care Team Providers Care Needle Leader Name Role Phone Estrellita Strickland MD Primary Care Provider Unavailabl e Encounter Details Date Type Department Care Team (Late st Contact Info) Description 12/17/2009 Documentation [facility] [address] [place] [address] Family Medicine, Physician [address] [place] [address] Social History Tobacco Use Types Packs/Day Years [...] on filedocumented in this encounter Care Teams Needle Leader Relationship Specialty Start Date End Date Estrellita Strickland MD PCP - General 03/11/17 documented as of this encounter
--- OUTSIDE RECORDS SUMMARY | 2024-10-10 11:00 | XMS_ITS | Encounter Summary ---
Author Organization [facility] Address [address] [place] [address] Phone Care Team Providers Care Wardrobe Mistress Name Role Phone Estrellita Strickland MD Primary Care Provider Unavailabl e Encounter Details Date Type Department Care Team (Late st Contact Info) Description 12/17/2009 Documentation [facility] [address] [place] [address] Family Medicine, Physician [address] [place] [address] Social History Tobacco Use Types Packs/Day Years [...] on filedocumented in this encounter Care Teams Wardrobe Mistress Relationship Specialty Start Date End Date Estrellita Strickland MD PCP - General 03/11/17 documented as of this encounter
--- OUTSIDE RECORDS SUMMARY | 2024-10-10 11:00 | XMS_ITS | Encounter Summary ---
Author Organization [facility] Address [address] [place] [phone] Phone Care Team Providers Care Dye Beck Reel Operator Name Role Phone Estrellita Strickland MD Primary Care Provider Unavailabl e Encounter Details Date Type Department Care Team (Late st Contact Info) Description 06/02/2017 Conversion Encounter [facility] - [address] [address] Social History Tobacco Use Types Packs/Day Years [...] on filedocumented in this encounter Care Teams Dye Beck Reel Operator Relationship Specialty Start Date End Date Estrellita Strickland MD PCP - General 03/11/17 documented as of this encounter
--- OUTSIDE RECORDS SUMMARY | 2024-10-10 11:00 | XMS_ITS | Clinical Summary ---
Author Organization [facility] ity Address [address] [place] [address] Care Team Providers Care Forensic Anthropologist Name Role Phone Unavailable Primary Care Provider [...]
--- OUTSIDE RECORDS SUMMARY | 2024-10-10 11:00 | XMS_ITS | Clinical Summary ---
Author Organization [facility] Address [address] [place] [address] Phone Care Team Providers Care Feed Mill Manager Name Role Phone Estrellita Strickland MD [...] age to complete this topic Care Teams Feed Mill Manager Relationship Specialty Start Date End Date Estrellita Strickland MD PCP - General 03/11/17
--- OUTSIDE RECORDS SUMMARY | 2024-10-10 11:00 | XMS_ITS | Encounter Summary ---
Author Organization [facility] Address [address] [place] [address] Phone Care Team Providers Care Support Services Rep Name Role Phone Estrellita Strickland MD Primary Care Provider Unavailabl e Encounter Details Date Type Department Care Team (Late st Contact Info) Description 06/14/2011 Documentation [facility] [address] [place] [address] Family Medicine, Physician [address] [place] [address] Social History Tobacco Use Types Packs/Day Years [...] on filedocumented in this encounter Care Teams Support Services Rep Relationship Specialty Start Date End Date Estrellita Strickland MD PCP - General 03/11/17 documented as of this encounter
== END 2024-10-10 11:07 | disposition home or self-care (01) ==
LOC: HO.HMCH 09:52
PROVIDERS: PCP Internal Medicine
DX: R07.81 Pleurodynia (principal)

== ENCOUNTER → 2024-10-10 11:20 | Outpatient (BNV) | payer MEDICARE, MEDICAID, SELFPAY | PROVIDERS: PCP Internal Medicine; Visit Provider Radiology Diagnostic Radiology | DX: R07.81 Pleurodynia (principal) | CPT/HCPCS: 71101 ==

== ENCOUNTER 2025-04-29 15:39 | Outpatient (AMB) | payer MEDICARE, MEDICAID, SELFPAY ==
[2025-04-29 16:26] VITALS: BP 104/50; PULSE 77; RESP 18; TEMP 36.4; O2SAT 95; BMI 20.8
--- NOTE | 2025-04-29 16:26 | A.OFFPC_ITS ---
Vital Signs 04/29/25 16:26 Height 5 ft 8 in Weight 137 lb BMI 20.8 BP 104/50 L Blood Pressure Location Lt brachial Position Sitting Respiration 18 Pulse 77 Pulse Source Pulse Oximeter Temp 97.5 F Temp Source Temporal Artery Scan Pulse Oximetry (%) 95 Oxygen Delivery Method Room Air Intake Visit Reasons: increased dizziness Last Pattern Grader Required: No Accompanied by: Self / Same As Patient Allergies bupropion (BUPROPION) Allergy (Unknown, Verified 04/29/25 16:38) Vomiting, diarrhea ciprofloxacin Allergy (Unknown, Verified 04/29/25 16:38) fever,rash citalopram (From CELEXA) Allergy (Unknown, Verified 04/29/25 16:38) UNKNOWN desvenlafaxine (From PRISTIQ) Allergy (Unknown, Verified 04/29/25 16:38) UNKNOWN ibuprofen (From MOTRIN) Allergy (Unknown, Verified 04/29/25 16:38) UNKNOWN mirtazapine (Remeron) Allergy (Unknown, Verified 04/29/25 16:38) ? naproxen (NAPROXEN) Allergy (Unknown, Verified 04/29/25 16:38) UNKNOWN sertraline (SERTRALINE) Allergy (Unknown, Verified 04/29/25 16:38) vomiting, diarrhea trazodone (TRAZODONE) Allergy (Unknown, Verified 04/29/25 16:38) UNKNOWN venlafaxine (From EFFEXOR) Allergy (Unknown, Verified 04/29/25 16:38) Vomiting, diarrhea vortioxetine (From BRINTELLIX) Allergy (Unknown, Verified 04/29/25 16:38) palpation zolpidem (From AMBIEN) Allergy (Unknown, Verified 04/29/25 16:38) UNKNOWN quetiapine (QUETIAPINE) Adverse Reaction (Unknown, Verified 04/29/25 16:38) palpation Pristiq Allergy (Unknown, Uncoded 04/29/25 16:38) vomiting, upset stomach Medication List - Last Reconciled 04/29/25 by Emily Bergeron MD albuterol sulfate 90 mcg/actuation 2 puffs inhalation Q6H PRN bupropion HCl XL mg PO DAILY clonazepam 1.5 mg PO BID PRN clonidine HCl 0.1 mg PO BEDTIME cyclobenzaprine 10 mg PO TID PRN sertraline mg PO DAILY Tobacco use date assessed: 04/29/25 Dental Screening Dental Screen Date: 04/29/25 Did you have a dental visit in the last 12 months?: Yes Did you have a dental problem in the last 6 months where you did not have access to dental care?: No Was dental information given to patient?: Patient has dentist HPI HPI Comments History of Present Illness Details The patient is a 34-year-old male presenting with dizziness and suspected benign paroxysmal positional vertigo. The dizziness began on Tuesday, with the patient initially feeling well but later experiencing a sensation of misalignment between the eyes and brain, particularly when moving the head. The dizziness varies in intensity, sometimes being severe enough to prevent activities such as walking or running at [employer]. The patient also reports occasional ringing in the ears, though not consistently associated with the dizziness. A physical examination revealed a small amount of earwax, but no significant findings to suggest a central cause for the dizziness. The patient has a history of temporomandibular joint disorder, which may contribute to the symptoms. He recalls waking up with jaw pain on Tuesday, which he associates with the ear symptoms and dizziness. [facility] Medical History (Updated 04/29/25 @ 16:53 by Emily Bergeron MD) Pneumonia due to influenza Influenza A History of alcohol use disorder Asthma Depression Anxiety Knee pain Left hip pain Low back pain Surgical History History of wisdom tooth extraction Family History Father Medical history unknown Mental health disorder Mother Medical history unknown Mental health disorder Maternal Grandfather Myocardial infarction Maternal Uncle No problems noted. Social History Housing: Apartment Alcohol intake: former Comment: states that he is 2 years sober now as of 09/07/2024 Patient Tobacco Use Status: Former Tobacco user Tobacco use type: Cigarette e-Cigarette/Vaping Use: Former Use Second Hand Smoke Exposure: Yes service: No Current occupational status: disabled Cognitive needs: No Hearing needs: No Vision needs: No Questionnaire PHQ-9 Over the last 2 weeks, how often have you been bothered by any of the following problems? 1. Little interest or pleasure in doing things: several days 2. Feeling down, depressed, or hopeless: several days 3. Trouble falling or staying asleep, or sleeping too much: several days 4. Feeling tired or having little energy: several days 5. Poor appetite or overeating: several days 6. Feeling bad about yourself - or that you are a failure or have let yourself or your family down: several days 7. Trouble concentrating on things, such as reading the newspaper or watching television: several days 8. Moving or speaking so slowly that other people could have noticed. Or the opposite - being so fidgety or restless that you have been moving around a lot more than usual: several days 9. Thoughts that you would be better off or of hurting yourself in some way: several days Total score: 9 Depression Screening Interpretation: Positive Depression Screening Follow-up: Existing condition, In treatment, Community Mental Health Worker F/U and Follow- up Visit Requested Depression Screening Done: Yes 85289 - PHQ-9 Billing: Yes Source: Developed by Drs. Gucci Dela Cruz, Nguyen Grover, Jose Bowman and colleagues, with an educational zamzam from [employer]. Thrive Questionnaire Date Thrive assessed: 08/31/24 I am a: Patient What is your living situation today?: I have a steady place to live Within the past 12 months, did the food you bought not last and you didn't have the money to get more?: I choose not to answer this question Within the past 12 months, did you worry whether your food would run out before you got money to buy more?: I choose not to answer this question Do you have trouble paying for medicines?: No Do you have trouble getting transportation to medical appointments?: No Do you have trouble paying your heating and electricity bill?: I choose not to answer this question Do you have trouble taking care of your child, family member or friend?: I choose not to answer this question Do you have trouble with day-to-day activities such as bathing, preparing meals, shopping, managing finances, etc.?: Yes Are you currently unemployed and looking for a job?: I choose not to answer this question Are you interested in more education?: Yes Please select the resources that you would like help with: None Currently or been in a relationship where the following occur: No concerns reported THRIVE Score: 0 GLENNA-7 AMB Questionnaire GLENNA-7 Date GLENNA - 7 assessed: 09/07/24 Source: Developed by Drs. Gucci Dela Cruz, Nguyen Grover, Jose Bowman and colleagues, with an educational zamzam from [employer]. Review of Systems Const All systems reviewed & are unremarkable except as noted in HPI and below Card Denies chest pain at rest, Denies chest pain with activity, Denies edema, Denies irregular heart rhythm, Denies claudication, Denies dyspnea, Denies dyspnea on exertion, Denies orthopnea, Denies paroxysmal nocturnal dyspnea and Denies slow heart rate Resp Denies cough, Denies dyspnea and Denies dyspnea on exertion Physical exam (Primary Care) Vital Signs: Last Vital Signs Temp 97.5 F 04/29/25 16:26 Pulse 77 04/29/25 16:26 Resp 18 04/29/25 16:26 BP 104/50 L 04/29/25 16:26 Pulse Ox 95 04/29/25 16:26 Oxygen Delivery Method Room Air 04/29/25 16:26 BMI result Body Mass Index 20.8 Tobacco/Smoking Status: Tobacco use Status Tobacco use date assessed 04/29/25 04/29/25 16:30 Patient Tobacco Use Status Former Tobacco user 04/29/25 16:30 Tobacco use type Cigarette 04/29/25 16:30 e-Cigarette/Vaping Use Former Use 04/29/25 16:30 PHQ-9: PHQ-9 Score PHQ-9: Total score 9 04/29/25 16:46 Depression Screening Interpretation: Positive Depression Screening Follow-up: Existing condition, In treatment, Community Mental Health Worker F/U and Follow- up Visit Requested Thrive Assessment: Date of Thrive Assessment Date Thrive assessed 08/31/24 04/29/25 16:30 Currently or been in a relationship where the following occur: No concerns reported [facility] General nose exam: Normal external nose present Resp Effort & Inspection: normal respiratory effort Auscultation: clear to auscultation bilaterally Cardio Jugular venous distension: no JVD Rate: regular rate Rhythm: regular rhythm Heart sounds: S1 normal heart sound present and S2 normal heart sound present Neuro Romberg Test: Negative Extrem General: Yes full ROM Coding Level of Care Code Est Pt Level 3 (63678) Diagnoses BPPV (benign paroxysmal positional vertigo) H81.10 Additional Codes PHQ-9 - 15152 - PHQ-9 Billing: Yes ([id number]) Time Spent (min) 18 Assessment & Plan Assessment & Plan (1) BPPV (benign paroxysmal positional vertigo): Code(s): H81.10 - Benign paroxysmal vertigo, unspecified ear Category: Medical Plan Plan Patient was informed and verbally consented to the use of an ambient scribe for clinic note documentation during this visit. 1. Benign paroxysmal vertigo, unspecified ear H81.10 The plan includes referral to vestibular therapy to realign otoliths through head movement exercises. A medication was prescribed to manage symptoms, with instructions to discontinue if no improvement is noted within three days. Orders: Orders PT Evaluation and Treatment Today H81.10 - Benign paroxysmal vertigo, unspecified ear Medications: New meclizine 25 mg PO BID PRN 6 tabs 0RF dizziness 3 days
--- OUTSIDE RECORDS SUMMARY | 2025-04-29 17:43 | XMS_ITS | Encounter Summary ---
Author Organization [facility] Address [address] [place] [phone] Phone Care Team Providers Care Facility Specialist Name Role Phone Estrellita Strickland MD Primary Care Provider Unavailabl e Encounter Details Date Type Department Care Team (Late st Contact Info) Description 06/14/2011 Documentation [facility] [address] [place] [address] Family Medicine, Physician [address] [place] [address] Social History Tobacco Use Types Packs/Day Years [...] on filedocumented in this encounter Care Teams Facility Specialist Relationship Specialty Start Date End Date Estrellita Strickland MD PCP - General 03/11/17 documented as of this encounter
--- OUTSIDE RECORDS SUMMARY | 2025-04-29 17:43 | XMS_ITS | Clinical Summary ---
Author Organization [employer] [facility] ity Address [address] [place] [address] Care Team Providers Care Journeyman Pipe Fitter Name Role Phone Unavailable Primary Care Provider [...] of 3 - 19+ 3-dose series) 11/26/2010 Depression Screening 08/01/2024 COVID-19 Vaccine (1 - 2023-2 5 season) 2025 Influenza Vaccine (#1) 2025 HIB Vaccines Aged Out No longer eligi [...] age to complete this topic Meningococcal B Vaccine Aged Out No l onger eligible based on patient's age to complete this topic Pneumococcal Vaccine: Pediat rics (0 to 5 Years) and At-Risk Patients (6 to 49 Years) Aged Out No longer eligible b ased on patient's age to complete this topic RSV Immunization Patients Un neftali 20 months Aged Out No longer eligible b ased on patient's age to complete this topic Varicella Vaccines Aged Out No longer eligible based on patient's age to complete this topic
--- OUTSIDE RECORDS SUMMARY | 2025-04-29 17:43 | XMS_ITS | Encounter Summary ---
Author Organization [facility] Address [address] [place] [address] Phone Care Team Providers Care Sole Skiver Name Role Phone Estrellita Strickland MD Primary Care Provider Unavailabl e Encounter Details Date Type Department Care Team (Late st Contact Info) Description 07/14/2011 Documentation [facility] [address] [place] [address] Family Medicine, Physician [address] [place] [address] Social History Tobacco Use Types Packs/Day Years [...] on filedocumented in this encounter Care Teams Sole Skiver Relationship Specialty Start Date End Date Estrellita Strickland MD PCP - General 03/11/17 documented as of this encounter
--- OUTSIDE RECORDS SUMMARY | 2025-04-29 17:43 | XMS_ITS | Encounter Summary ---
Author Organization [facility] Address [address] [place] [address] Phone Care Team Providers Care Claim Trainee Name Role Phone Estrellita Strickland MD Primary Care Provider Unavailabl e Encounter Details Date Type Department Care Team (Late st Contact Info) Description 06/02/2017 Conversion Encounter [facility] - [address] [address] Social History Tobacco Use Types Packs/Day Years [...] on filedocumented in this encounter Care Teams Claim Trainee Relationship Specialty Start Date End Date Estrellita Strickland MD PCP - General 03/11/17 documented as of this encounter
--- OUTSIDE RECORDS SUMMARY | 2025-04-29 17:43 | XMS_ITS | Encounter Summary ---
Author Organization [facility] Address [address] [place] [address] Phone Care Team Providers Care Unit Trust Manager Name Role Phone Estrellita Strickland MD Primary Care Provider Unavailabl e Encounter Details Date Type Department Care Team (Late st Contact Info) Description 12/17/2009 Documentation [facility] [address] [place] [address] Family Medicine, Physician [address] [place] [address] Social History Tobacco Use Types Packs/Day Years [...] on filedocumented in this encounter Care Teams Unit Trust Manager Relationship Specialty Start Date End Date Estrellita Strickland MD PCP - General 03/11/17 documented as of this encounter
--- OUTSIDE RECORDS SUMMARY | 2025-04-29 17:43 | XMS_ITS | Encounter Summary ---
Author Organization [facility] Address [address] [place] [address] Phone Care Team Providers Care Cigar Packer And Shader Name Role Phone Estrellita Strickland MD Primary Care Provider Unavailabl e Encounter Details Date Type Department Care Team (Late st Contact Info) Description 12/17/2009 Documentation [facility] [address] [place] [address] Family Medicine, Physician [address] [place] [address] Social History Tobacco Use Types Packs/Day Years [...] on filedocumented in this encounter Care Teams Cigar Packer And Shader Relationship Specialty Start Date End Date Estrellita Strickland MD PCP - General 03/11/17 documented as of this encounter
--- OUTSIDE RECORDS SUMMARY | 2025-04-29 17:43 | XMS_ITS | Clinical Summary ---
Author Organization [facility] Address [address] [place] [address] Phone Care Team Providers Care Power Hammer Operator Name Role Phone Estrellita Strickland MD [...] 73 02/24/2010 12:00 AM EDT Temperature 36.3 C (97.3 F) 02/24/2010 12:00 AM EDT Respiratory Rate - - Oxygen Saturation - [...] 09/24/2018 09/24/2008, 10/07/2003, 12/07/1995, Additional history exists HPV Vaccines (1 - 3-dose SCDM series) 11/26/2018 Influenza Vaccines (#1) 2025 05/01/20 08, 05/24/2007, 05/20/2004, Additional history exists COVID-19 Vaccine ( season) 2025 HIB Vaccines Completed 04/08/1993, 06/03, 04/04/1992, Additional [...] age to complete this topic Care Teams Power Hammer Operator Relationship Specialty Start Date End Date Estrellita Strickland MD PCP - General 03/11/17
== END 2025-04-29 17:00 | disposition home or self-care (01) ==
LOC: HO.HMCH 15:40
PROVIDERS: PCP Internal Medicine; Visit Provider Internal Medicine
DX: H81.10 Benign paroxysmal vertigo, unspecified ear (principal)

== ENCOUNTER → 2025-04-29 15:39 | Outpatient (BNVA) | payer MEDICARE, MEDICAID, SELFPAY | PROVIDERS: PCP Internal Medicine; Visit Provider Internal Medicine | DX: H81.10 Benign paroxysmal vertigo, unspecified ear (principal) | CPT/HCPCS: 96127; 99212 ==

== ENCOUNTER → 2025-05-09 11:45 | Outpatient (BNVA) | payer MEDICARE, MEDICAID, SELFPAY | PROVIDERS: PCP Internal Medicine | DX: Z13.89 Encounter for screening for other disorder (principal) | CPT/HCPCS: 99211 ==

== ENCOUNTER 2025-06-21 12:20 | Outpatient (AMB) | payer MEDICARE, MEDICAID, SELFPAY ==
[2025-06-21 12:33] VITALS: BP 98/64; PULSE 84; O2SAT 97; BMI 20.4
--- NOTE | 2025-06-21 12:33 | MHC.PC.OV ---
Vital Signs 06/21/25 12:33 Height 5 ft 8 in Weight 134 lb 6 oz BMI 20.4 BP 98/64 Blood Pressure Location Lt brachial Position Sitting Pulse 84 Pulse Source Pulse Oximeter Pulse Oximetry (%) 97 Oxygen Delivery Method Room Air Intake Visit Reasons: pain in rectum Social Media Community Manager Required: No Accompanied by: Self / Same As Patient Allergies bupropion (BUPROPION) Allergy (Unknown, Verified 06/21/25 12:54) Vomiting, diarrhea ciprofloxacin Allergy (Unknown, Verified 06/21/25 12:54) fever,rash citalopram (From CELEXA) Allergy (Unknown, Verified 06/21/25 12:54) UNKNOWN desvenlafaxine (From PRISTIQ) Allergy (Unknown, Verified 06/21/25 12:54) UNKNOWN ibuprofen (From MOTRIN) Allergy (Unknown, Verified 06/21/25 12:54) UNKNOWN mirtazapine (Remeron) Allergy (Unknown, Verified 06/21/25 12:54) ? naproxen (NAPROXEN) Allergy (Unknown, Verified 06/21/25 12:54) UNKNOWN sertraline (SERTRALINE) Allergy (Unknown, Verified 06/21/25 12:54) vomiting, diarrhea trazodone (TRAZODONE) Allergy (Unknown, Verified 06/21/25 12:54) UNKNOWN venlafaxine (From EFFEXOR) Allergy (Unknown, Verified 06/21/25 12:54) Vomiting, diarrhea vortioxetine (From BRINTELLIX) Allergy (Unknown, Verified 06/21/25 12:54) palpation zolpidem (From AMBIEN) Allergy (Unknown, Verified 06/21/25 12:54) UNKNOWN quetiapine (QUETIAPINE) Adverse Reaction (Unknown, Verified 06/21/25 12:54) palpation Pristiq Allergy (Unknown, Uncoded 06/21/25 12:54) vomiting, upset stomach Medication List - Last Reconciled 06/21/25 by Pop Umana MD albuterol sulfate 90 mcg/actuation 2 puffs inhalation Q6H PRN bupropion HCl XL mg PO DAILY clonazepam 1.5 mg PO BID PRN clonidine HCl 0.1 mg PO BEDTIME cyclobenzaprine 10 mg PO TID PRN meclizine 25 mg PO BID PRN 3 days sertraline mg PO DAILY Tobacco use date assessed: 06/21/25 Dental Screening Dental Screen Date: 06/21/25 Did you have a dental visit in the last 12 months?: Yes Did you have a dental problem in the last 6 months where you did not have access to dental care?: No Was dental information given to patient?: Patient has dentist HPI pain in rectum HPI Details - The patient is a 34 year old individual who was last seen for an annual physical in September 2024, presenting now with new-onset rectal pain. - The rectal pain began a couple of days ago and is severe enough to cause discomfort when he is sitting or standing. - Associated symptoms include difficulty initiating urination and a sensation of needing to defecate when urinating. - The patient reports irregular bowel movements, with a normal bowel movement in the morning followed by - a messy one. - The patient denies observing any blood in the stool or urine. - The patient has known stomach issues and reports being extra gassy but denies any recent stomach pain. - The patient acknowledges a previously unhealthy lifestyle and is now trying to lead a healthier one by running, walking, and participating in 5Ks. - The patient has a history of anxiety, for which the patient takes medication. [facility] Medical History Pneumonia due to influenza Influenza A History of alcohol use disorder Asthma Depression Anxiety Knee pain Left hip pain Low back pain Surgical History History of wisdom tooth extraction Family History Father Medical history unknown Mental health disorder Mother Medical history unknown Mental health disorder Maternal Grandfather Myocardial infarction Maternal Uncle No problems noted. Social History Housing: Apartment Alcohol intake: former Comment: states that he is 2 years sober now as of 09/07/2024 Patient Tobacco Use Status: Former Tobacco user Tobacco use type: Cigarette e-Cigarette/Vaping Use: Former Use Second Hand Smoke Exposure: Yes service: No Current occupational status: disabled Cognitive needs: No Hearing needs: No Vision needs: No Questionnaire PHQ-9 Over the last 2 weeks, how often have you been bothered by any of the following problems? 1. Little interest or pleasure in doing things: several days 2. Feeling down, depressed, or hopeless: several days 3. Trouble falling or staying asleep, or sleeping too much: several days 4. Feeling tired or having little energy: several days 5. Poor appetite or overeating: several days 6. Feeling bad about yourself - or that you are a failure or have let yourself or your family down: several days 7. Trouble concentrating on things, such as reading the newspaper or watching television: several days 8. Moving or speaking so slowly that other people could have noticed. Or the opposite - being so fidgety or restless that you have been moving around a lot more than usual: several days 9. Thoughts that you would be better off or of hurting yourself in some way: several days Total score: 9 Depression Screening Interpretation: Positive Depression Screening Follow-up: Existing condition and In treatment Depression Screening Done: Yes 23407 - PHQ-9 Billing: Yes Source: Developed by Drs. Gucci Dela Cruz, Nguyen Grover, Jose Bowman and colleagues, with an educational zamzam from [employer]. Thrive Questionnaire Date Thrive assessed: 06/21/25 I am a: Patient What is your living situation today?: I have a steady place to live Within the past 12 months, did the food you bought not last and you didn't have the money to get more?: I choose not to answer this question Within the past 12 months, did you worry whether your food would run out before you got money to buy more?: I choose not to answer this question Do you have trouble paying for medicines?: No Do you have trouble getting transportation to medical appointments?: No Do you have trouble paying your heating and electricity bill?: I choose not to answer this question Do you have trouble taking care of your child, family member or friend?: I choose not to answer this question Do you have trouble with day-to-day activities such as bathing, preparing meals, shopping, managing finances, etc.?: Yes Are you currently unemployed and looking for a job?: I choose not to answer this question Are you interested in more education?: Yes Please select the resources that you would like help with: None Currently or been in a relationship where the following occur: No concerns reported THRIVE Score: 0 AUDIT C Alcohol Use Questionnaire (AUDIT-C) 1. How often do you have a drink containing alcohol?: Never 2. How many drinks containing alcohol do you have on a typical day when you are drinking?: 5 or 6 3. How often do you have six or more drinks on one occasion?: Never Total Score: 2 Score Reviewed/Action Taken: Yes GLENNA-7 AMB Questionnaire GLENNA-7 Date GLENNA - 7 assessed: 06/21/25 Feeling nervous, anxious, or on edge: 0 = Not at all Not being able to stop or control worryin = Not at all Worrying too much about different things: 0 = Not at all Trouble relaxin = Not at all Being so restless that it is hard to sit still: 0 = Not at all Becoming easily annoyed or irritable: 0 = Not at all Feeling afraid as if something awful might happen: 0 = Not at all Total GLENNA-7 score (0-4 normal; 5-9 mild; 10-14 moderate; 15-21 severe): 0 Source: Developed by Drs. Gucci Dela Cruz, Nguyen Grover, Jose Bowman and colleagues, with an educational zamzam from [employer]. Review of Systems Const Denies chills, Denies fatigue, Denies fever(s) and Denies headache(s) ENT Denies dysphagia, Denies dizziness, Denies otalgia, Denies headache(s), Denies neck pain, Denies odynophagia and Denies sore throat Card Denies chest pain, Denies rapid heart rate, Denies irregular heart rhythm, Denies palpitations and Denies dyspnea Resp Denies chest congestion, Denies cough and Denies dyspnea GI Details: (+) rectal pain - see HPI for details Denies abdominal pain, Denies hematochezia, Reports change in bowel habits (see HPI - c/o irregular bowel habits ), Denies dysphagia, Denies heartburn, Denies nausea, Denies odynophagia and Denies vomiting Denies hematuria, Reports difficulty urinating (see HPI), Denies dysuria, Denies nocturia and Denies urinary frequency Musc Denies back pain, Denies arthralgias and Denies neck pain Skin/Breast Denies rash Neuro Denies dizziness, Denies headache(s) and Denies paresthesias Psych Reports anxiety and Reports depression Endo Denies fatigue and Denies palpitations Physical exam (Primary Care) Vital Signs: Last Vital Signs Pulse 84 06/21/25 12:33 BP 98/64 06/21/25 12:33 Pulse Ox 97 06/21/25 12:33 Oxygen Delivery Method Room Air 06/21/25 12:33 BMI result Body Mass Index 20.4 Tobacco/Smoking Status: Tobacco use Status Tobacco use date assessed 06/21/25 06/21/25 12:42 Patient Tobacco Use Status Former Tobacco user 06/21/25 12:42 Tobacco use type Cigarette 06/21/25 12:42 e-Cigarette/Vaping Use Former Use 06/21/25 12:42 PHQ-9: PHQ-9 Score PHQ-9: Total score 9 06/23/25 12:59 Depression Screening Interpretation: Positive Depression Screening Follow-up: Existing condition and In treatment Thrive Assessment: Date of Thrive Assessment Date Thrive assessed 06/21/25 06/21/25 12:42 Currently or been in a relationship where the following occur: No concerns reported Const General: no acute distress and alert HENMT Throat: Yes posterior oropharynx normal and Yes tonsils normal (no TP congestion) Neck Neck: Yes supple and No lymphadenopathy Thyroid: Thyroid normal Resp Auscultation: clear to auscultation bilaterally, no rales and no wheezes Cardio Rate: regular rate Rhythm: regular rhythm Heart sounds: no murmurs GI Palpation (GI): Soft to palpation and nontender Auscultation: normal bowel sounds General: Yes no CVA tenderness Back/Spine/Pelvis Back: no CVA tenderness Thoracic/Lumbar Spine: No lumbar spinal tenderness Skin Rashes: no rashes Extrem General: Yes no clubbing, cyanosis or edema Coding Level of Care Code Est Pt Level 3 (21408) Diagnoses Rectal pain K62.89 Irregular bowel habits R19.8 Additional Codes PHQ-9 - 41606 - PHQ-9 Billing: Yes ([id number]) Assessment & Plan Assessment & Plan (1) Rectal pain: Code(s): K62.89 - Other specified diseases of anus and rectum Category: Medical (2) Irregular bowel habits: Code(s): R19.8 - Other specified symptoms and signs involving the digestive system and abdomen Category: Medical Plan Will send patient for a barium enema for further evaluation Have advised patient that he will likely need to see GI for further evaluation (his irregular bowel habits may be due to IBS) but we will wait and see how his barium enema comes out first To return as scheduled in September 2025 for his annual physical exam He is reminded to get his labs done JUST BEFORE he returns in September 2025 for his annual physical exam Orders: Orders Complete Blood Count Auto Diff 09/07/25 D64.9 - Anemia, unspecified, Z00.00 - Encounter for general adult medical examination without abnormal findings Lipid Panel 09/07/25 E78.00 - Pure hypercholesterolemia, unspecified, Z00.00 - Encounter for general adult medical examination without abnormal findings TSH reflex Free T4 09/07/25 E78.00 - Pure hypercholesterolemia, unspecified, Z00.00 - Encounter for general adult medical examination without abnormal findings [place] barium enema 06/21/25 K62.89 - Other specified diseases of anus and rectum Comprehensive [place]. Panel Fast 09/07/25 E78.00 - Pure hypercholesterolemia, unspecified, Z00.00 - Encounter for general adult medical examination without abnormal findings UA CC w/rflx Micro + Cult 09/07/25 R30.0 - Dysuria, Z00.00 - Encounter for general adult medical examination without abnormal findings Vitamin D 25-OH Total 09/07/25 E55.9 - Vitamin D deficiency, unspecified, Z00.00 - Encounter for general adult medical examination without abnormal findings
--- OUTSIDE RECORDS SUMMARY | 2025-06-21 12:47 | XMS_ITS | Encounter Summary ---
Author Organization [facility] Address [address] [place] [address] Phone Care Team Providers Care Mallet Cutter Name Role Phone Estrellita Strickland MD Primary Care Provider Unavailabl e Encounter Details Date Type Department Care Team (Late st Contact Info) Description 12/17/2009 Documentation [facility] [address] [place] [address] Family Medicine, Physician [address] [place] [address] Social History Tobacco Use Types Packs/Day Years [...] on filedocumented in this encounter Care Teams Mallet Cutter Relationship Specialty Start Date End Date Estrellita Strickland MD PCP - General 03/11/17 documented as of this encounter
--- OUTSIDE RECORDS SUMMARY | 2025-06-21 12:47 | XMS_ITS | Clinical Summary ---
Author Organization [facility] Address [address] [place] [address] Phone Care Team Providers Care Oil Filters Inspector Name Role Phone Estrellita Strickland MD [...] SCDM series) 11/26/2018 Influenza Vaccines (#1) 2025 05/01/20, 05/24/2007, 05/20/2004, Additional history exists COVID-19 Vaccine ( - 2024- season) 2025 HIB Vaccines Completed 04/08/1993, 06/03, [...] age to complete this topic Care Teams Oil Filters Inspector Relationship Specialty Start Date End Date Estrellita Strickland MD PCP - General 03/11/17
--- OUTSIDE RECORDS SUMMARY | 2025-06-21 12:47 | XMS_ITS | Encounter Summary ---
Author Organization [facility] Address [address] [place] [address] Phone Care Team Providers Care Software Test And Validation Engineer Name Role Phone Estrellita Strickland MD Primary Care Provider Unavailabl e Encounter Details Date Type Department Care Team (Late st Contact Info) Description 12/17/2009 Documentation [facility] [address] [place] [address] Family Medicine, Physician [address] [place] [address] Social History Tobacco Use Types Packs/Day Years [...] on filedocumented in this encounter Care Teams Software Test And Validation Engineer Relationship Specialty Start Date End Date Estrellita Strickland MD PCP - General 03/11/17 documented as of this encounter
--- OUTSIDE RECORDS SUMMARY | 2025-06-21 12:47 | XMS_ITS | Encounter Summary ---
Author Organization [facility] Address [address] [place] [address] Phone Care Team Providers Care Paleobotanist Name Role Phone Estrellita Strickland MD Primary Care Provider Unavailabl e Encounter Details Date Type Department Care Team (Late st Contact Info) Description 06/14/2011 Documentation [facility] [address] [place] [address] Family Medicine, Physician [address] [place] [address] Social History Tobacco Use Types Packs/Day Years [...] on filedocumented in this encounter Care Teams Paleobotanist Relationship Specialty Start Date End Date Estrellita Strickland MD PCP - General 03/11/17 documented as of this encounter
--- OUTSIDE RECORDS SUMMARY | 2025-06-21 12:47 | XMS_ITS | Encounter Summary ---
Author Organization [facility] Address [address] [place] [address] Phone Care Team Providers Care Transportation Supervisor Name Role Phone Estrellita Strickland MD Primary Care Provider Unavailabl e Encounter Details Date Type Department Care Team (Late st Contact Info) Description 06/02/2017 Conversion Encounter [facility] - [address] [address] Social History Tobacco Use Types Packs/Day Years [...] on filedocumented in this encounter Care Teams Transportation Supervisor Relationship Specialty Start Date End Date Estrellita Strickland MD PCP - General 03/11/17 documented as of this encounter
--- OUTSIDE RECORDS SUMMARY | 2025-06-21 12:47 | XMS_ITS | Encounter Summary ---
Author Organization [facility] Address [address] [place] [address] Phone Care Team Providers Care Exercise Specialist Name Role Phone Estrellita Strickland MD Primary Care Provider Unavailabl e Encounter Details Date Type Department Care Team (Late st Contact Info) Description 07/14/2011 Documentation [facility] [address] [place] [address] Family Medicine, Physician [address] [place] [address] Social History Tobacco Use Types Packs/Day Years [...] on filedocumented in this encounter Care Teams Exercise Specialist Relationship Specialty Start Date End Date Estrellita Strickland MD PCP - General 03/11/17 documented as of this encounter
--- OUTSIDE RECORDS SUMMARY | 2025-06-21 12:47 | XMS_ITS | Clinical Summary ---
Author Organization [facility] ity Address [address] [place] [address] Care Team Providers Care Profile Saw Setup Operator Name Role Phone Unavailable Primary Care [...] of 3 - 19+ 3-dose series) 11/26/2010 HPV Vaccines (1 - 3-dose SCD M series) 11/26/2018 Depression Screening 08/01/2024 COVID-19 Vaccine (1 - 2024-2 6 season) 2025 Influenza Vaccine (#1) 2025 RSV Immunization Adult Patie nts (1 - 1-dose 75+ series) 11/26/2066 HIB Vaccines Aged Out No longer eligi [...]
== END 2025-06-21 13:03 | disposition home or self-care (01) ==
LOC: HO.HMCH 12:20
PROVIDERS: PCP Internal Medicine; Visit Provider Internal Medicine
DX: K62.89 Other specified diseases of anus and rectum (principal); R19.8 Other specified symptoms and signs involving the digestive system and abdomen

== ENCOUNTER → 2025-06-21 12:20 | Outpatient (BNVA) | payer MEDICARE, MEDICAID, SELFPAY | PROVIDERS: PCP Internal Medicine; Visit Provider Internal Medicine | DX: K62.89 Other specified diseases of anus and rectum (principal); R19.8 Other specified symptoms and signs involving the digestive system and abdomen | CPT/HCPCS: 96127; 99212 ==

== ENCOUNTER 2025-07-01 10:24 | Outpatient (REF) | payer MEDICARE, MEDICAID, SELFPAY ==
--- NOTE | ~2025-07-01 | FL_ITS ---
EXAMINATION: XR BARIUM ENEMA CLINICAL INFORMATION: 34-year-old male complaining of rectal pain and irregular bowel habits. COMPARISON: None available. TECHNIQUE: Fluoroscopic single contrast barium enema examination was performed utilizing standard techniques with thick barium. Using standard technique, a well lubricated enema tip was inserted into the patient's rectum, and retention balloon was inflated. Barium was then instilled into the rectum under utilizing gravity, under direct freezer machine operator control. Numerous spot images were obtained. Several fluoroscopic image hold cine sequences were also obtained. Once the entire colon was distended with barium, several overhead radiographs were obtained. A Band-Aid was then dropped and left to drain via gravity. The balloon was then deflated and the barium enema tip removed. Patient tolerated the procedure well. FINDINGS: The quality of the prep was good. The rectum has a normal size, course, and contour. No abnormalities identified. The colon was visualized to the level of the cecum. The colon demonstrates a normal size, course, and contour. No masses, strictures, or abnormal filling defects were identified. Normal haustral folds present. No significant diverticular disease was present. Postevacuation images were unremarkable. FLUOROSCOPY TIME: 4 minutes 15 seconds Number of Spot Images:11 Number of cines obtained: 7 Number of overhead radiographs: 4. DOSE AREA PRODUCT: [id number] uGy-m2 (microgray-meter squared) FL/FL barium enema IMPRESSION: Normal single contrast barium enema. No abnormalities. Electronically signed by: Andrez Leavitt MD 07/01/2025 01:26 PM [facility] [place]
--- OUTSIDE RECORDS SUMMARY | 2025-07-01 13:07 | XMS_ITS | Encounter Summary ---
Author Organization [facility] Address [address] [place] [address] Phone Care Team Providers Care Franchise Sales Manager Name Role Phone Estrellita Strickland MD Primary Care Provider Unavailabl e Encounter Details Date Type Department Care Team (Late st Contact Info) Description 06/02/2017 Conversion Encounter [facility] - [address] [id number] Social History Tobacco Use Types Packs/Day Years [...] on filedocumented in this encounter Care Teams Franchise Sales Manager Relationship Specialty Start Date End Date Estrellita Strickland MD PCP - General 03/11/17 documented as of this encounter
--- OUTSIDE RECORDS SUMMARY | 2025-07-01 13:07 | XMS_ITS | Encounter Summary ---
Author Organization [facility] Address [address] [place] [address] Phone Care Team Providers Care Supervisor Engine Repair Name Role Phone Estrellita Strickland MD Primary Care Provider Unavailabl e Encounter Details Date Type Department Care Team (Late st Contact Info) Description 12/17/2009 Documentation [facility] [address] [place] [address] Family Medicine, Physician [address] [place] [address] Social History Tobacco Use Types Packs/Day Years [...] on filedocumented in this encounter Care Teams Supervisor Engine Repair Relationship Specialty Start Date End Date Estrellita Strickland MD PCP - General 03/11/17 documented as of this encounter
--- OUTSIDE RECORDS SUMMARY | 2025-07-01 13:07 | XMS_ITS | Clinical Summary ---
Author Organization [facility] ity Address [address] [place] [address] Care Team Providers Care Utility Bag Assembler Name Role Phone Unavailable Primary Care Provider [...]
--- OUTSIDE RECORDS SUMMARY | 2025-07-01 13:07 | XMS_ITS | Encounter Summary ---
Author Organization [facility] Address [address] [place] [address] Phone Care Team Providers Care Tinter Photograph Name Role Phone Estrellita Strickland MD Primary Care Provider Unavailabl e Encounter Details Date Type Department Care Team (Late st Contact Info) Description 12/17/2009 Documentation [facility] [address] [place] [address] Family Medicine, Physician [address] [place] [address] Social History Tobacco Use Types Packs/Day Years [...] on filedocumented in this encounter Care Teams Tinter Photograph Relationship Specialty Start Date End Date Estrellita Strickland MD PCP - General 03/11/17 documented as of this encounter
--- OUTSIDE RECORDS SUMMARY | 2025-07-01 13:07 | XMS_ITS | Encounter Summary ---
Author Organization [facility] Address [address] [place] [phone] Phone Care Team Providers Care Crm Marketing Manager Name Role Phone Estrellita Strickland MD Primary Care Provider Unavailabl e Encounter Details Date Type Department Care Team (Late st Contact Info) Description 07/14/2011 Documentation [facility] [address] [place] [address] Family Medicine, Physician [address] [place] [address] Social History Tobacco Use Types Packs/Day Years [...] on filedocumented in this encounter Care Teams Crm Marketing Manager Relationship Specialty Start Date End Date Estrellita Striclkand MD PCP - General 03/11/17 documented as of this encounter
--- OUTSIDE RECORDS SUMMARY | 2025-07-01 13:07 | XMS_ITS | Clinical Summary ---
Author Organization [facility] Address [address] [place] [phone] Phone Care Team Providers Care Magazine Publisher Name Role Phone Estrellita Strickland MD Primary [...] age to complete this topic Care Teams Magazine Publisher Relationship Specialty Start Date End Date Estrellita Strickland MD PCP - General 03/11/17
--- OUTSIDE RECORDS SUMMARY | 2025-07-01 13:07 | XMS_ITS | Encounter Summary ---
Author Organization [facility] Address [address] [place] [phone] Phone Care Team Providers Care Contract Coordinator Name Role Phone Estrellita Strickland MD Primary Care Provider Unavailabl e Encounter Details Date Type Department Care Team (Late st Contact Info) Description 06/14/2011 Documentation [facility] [address] [place] [address] Family Medicine, Physician [address] [place] [address] Social History Tobacco Use Types Packs/Day Years [...] on filedocumented in this encounter Care Teams Contract Coordinator Relationship Specialty Start Date End Date Esrtellita Strickland MD PCP - General 03/11/17 documented as of this encounter
== END 2025-07-01 10:25 | disposition home or self-care (01) ==
LOC: HO.XRAY 10:24
PROVIDERS: PCP Internal Medicine; Visit Provider Internal Medicine
DX: K62.89 Other specified diseases of anus and rectum (principal)
CPT/HCPCS: 74270

== ENCOUNTER → 2025-07-01 10:29 | Outpatient (BNV) | payer MEDICARE, MEDICAID, SELFPAY | PROVIDERS: PCP Internal Medicine; Visit Provider Radiology Diagnostic Radiology | DX: K62.89 Other specified diseases of anus and rectum (principal) | CPT/HCPCS: 74270 ==